=== PATIENT | male | born 1940 | race Caucasian/White ===

== ENCOUNTER 2024-03-10 00:30 | Inpatient (IN) | payer MEDICARE, SELFPAY ==
[2024-03-10 00:45] VITALS: PULSE 73; RESP 16; O2SAT 94
[2024-03-10 01:41] VITALS: BP 112/72; PULSE 73; RESP 18; TEMP 36.4; O2SAT 94
--- NOTE | 2024-03-10 06:33 | HP.PCM_ITS ---
[facility] - General General Date of Admission: 03/10/24 Date of Service: 03/12/24 Chief Complaint: Here for rehabilitation. HPI Narrative 02/20/2024 ROLAND LOREDO, is a 84 Male who presents to [facility] ED with weakness, dehydration, covid-19. 02/20/2024 Admit to [facility]. 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 Weak, unable to walk since positive for covid. Usually walks with cane and/or walker. Unable to stand, multiple falls. Chest X-ray negative, CT brain negative, CT CTLS spine negative. PT/OT for SNF. 1 Liter IV fluid bolus given in ED. 02/21/2024 Consult Neurology for recurrent stroke. Remdesivir for covid-19. 02/22/2024 Neurology recommended MRI brain, MRI CTL spine, PT/OT for weakness. Remdesivir x 3 days for covid-19. 02/23/2024 MRI brain medial occipital lobe infarct. MRI T spine T10-T11 severe spinal canal stenosis with indeterminate cord compression. Orthopedic spine consulted. Aspirin started for stroke. 02/24/2024 [facility] recommended thoracic surgical decompression 02/28/2024. 02/28/2024 [facility] perfored T9-T11 posterior spinal fusion, and instrumentation, T9-T11 laminectomy and decompression. 02/29/2024 WBAT, no bending, twisting or lifting. LILA drain. Postoperative antibiotics Ancef 2gm x 2 q8. Has not walked yet. 03/03/2024 Drain removed. 03/08/2024 Back pain tolerable, right lower extremity weakness.. Passed voiding trial, on Tamsulosin. covid-19 treated with 3 days of remdesivir. Creatinine improved to 1.9. 03/10/2024 Admit to TCU with debility, here for rehabilitation, strengthening, prior to discharge home with . [facility] Medical History (Updated 03/10/24 @ 06:[address] Aamir Robison MD) History of transcatheter aortic valve replacement (TAVR) Pulmonary fibrosis Chronic kidney disease, stage 3a GERD (gastroesophageal reflux disease) Hyperlipidemia Essential (primary) hypertension Diabetes mellitus Coronary artery disease Severe mitral stenosis by prior echocardiogram Aortic stenosis (HFpEF) heart failure with preserved ejection fraction Thoracic spinal stenosis Stroke Acute kidney injury Dehydration COVID-19 Weakness Debility Allergy/AdvReac Type Severity Reaction Status Date / Time sildenafil AdvReac Mild intolerance Verified 03/10/24 04:15 sulfamethoxazole (From AdvReac Mild intolerance Verified 03/10/24 04:15 Bactrim) trimethoprim (From Bactrim) AdvReac Mild intolerance Verified 03/10/24 04:15 Family History (Updated 03/10/24 @ 06:[address] Aamir Robison MD) Father CVA (cerebral vascular accident) Surgical History (Updated 03/10/24 @ 06:[address] Aamir Robison MD) History of neck surgery History of heart artery stent History of cholecystectomy History of thoracic surgery History of lumbar surgery Social History (Updated 03/10/24 @ 06:[address] Aamir Robison MD) household members: spouse Smoking Status: Former smoker alcohol intake: never substance use type: does not use ROS Constitutional Constitutional: Denies chills, fever(s) or weight gain ENT HEENT: Denies headache(s), nasal congestion or nasal discharge Cardiovascular Cardiovascular: Denies chest pain or palpitations Respiratory/Chest Respiratory/Chest: Denies cough, excessive phlegm production or shortness of breath with exertion Gastrointestinal Gastrointestinal: Denies abdominal pain, nausea or vomiting Genitourinary Genitourinary: Denies dysuria Musculoskeletal Musculoskeletal: Reports other Details: Mid back pain. ; Denies joint pain or joint swelling Integumentary Integumentary: Denies rash or wounds Neurologic Neurologic: Denies focal weakness, numbness or tingling Psychiatric Psychiatric: Denies anxiety, auditory hallucinations, depression, homicidal ideation or suicidal ideation Vital Signs Vital Signs Vital Signs: 03/10/24 00:45 03/10/24 01:41 Temperature 97.5 F L Temperature Source Temporal Pulse Rate 73 73 Pulse Rhythm Regular Pulse Strength Normal (2+) Respiratory Rate 16 18 Respiratory Effort Normal Non-Labored Respiratory Depth Normal Respiratory Pattern Normal Blood Pressure 112/72 Blood Pressure Mean 85 Blood Pressure Source Monitor Blood Pressure Position Semi-Fowlers Pulse Ox 94 94 Oxygen Delivery Method Warm Humidified Isolette Room Air Physical Exam Const alert General Appearance: cooperative HEENT normocephalic Eyes PERRL and EOMs intact bilaterally Neck supple, no JVD and no carotid bruits Resp normal respiratory effort, normal air movement and clear to auscultation bilaterally Cardio regular rate and regular rhythm GI normal to inspection, nondistended, normoactive bowel sounds, non-tender and non-distended Extremity normal capillary refill General Extremity: Negative for edema Skin no rashes or lesions noted General Skin Exam: no breakdown Psych affect normal Appearance: appropriate Results Lab / Micro Data 03/10/24 07:00 03/10/24 07:00 Assessment & Plan Assessment/Plan (1) Debility: (2) Weakness: (3) COVID-19: (4) Dehydration: (5) Acute kidney injury: (6) Stroke: (7) Thoracic spinal stenosis: (8) (HFpEF) heart failure with preserved ejection fraction: (9) Aortic stenosis: (10) Severe mitral stenosis by prior echocardiogram: (11) Coronary artery disease: (12) Diabetes mellitus: (13) Essential (primary) hypertension: (14) Hyperlipidemia: (15) GERD (gastroesophageal reflux disease): (16) Chronic kidney disease, stage 3a: (17) Pulmonary fibrosis: PLAN: Plan 84 year old male with below past medical history hospitalized for weakness 2/2 covid-19, complicated by thoracic spinal stenosis requiring surgery, acute kidney injury, dehydration, urinary retention, recent stroke, admitted to TCU with debility, here for rehabilitation, strengthening, prior to discharge home with . * Debility - PT/OT. * Pain - Tylenol 1000mg q8, Oxycodone 5mg q4 prn pain (1-10). * Bowel - Miralax 17gm daily, senna/colace 2 tablets bid, Magnesium citrate 300ml po daily prn. * Adult immunization - Administer pneumonia vaccine, covid vaccine, flu vaccine as appropriate. * DVT prophylaxis - Lovenox 30mg sc daily. * Pulmonary fibrosis - Albuterol 2 puffs q4 prn. * Hypertension - Coreg 6.25mg bidac, Amlodipine 10mg daily. * Coronary artery disease - Coreg 6.25mg bidac, Aspirin 81mg daily. * Hyperlipidemia - Atorvastatin 80mg qhs, Fenofibrate 48mg daily. * Glaucoma - Brimonidine 1gtt ou bid, Latanoprost 1gtt ou qhs. * Chronic HFpEF - Coreg 6.25mg bidac, Furosemide 40mg daily. * Vitamin D deficiency - D3 50mcg daily. * Vitamin B12 deficiency - B12 1000mcg daily. * Iron deficiency anemia - Ferrous sulfate 325mg q48. * Diabetes Mellitus II - Glargine 18 units qhs, Lispor 6 units tidac. * Skin irritation - Calmoseptine topical bid. * GERD - Pantoprazole 20mg daily. * BPH/urinary retention - Tamsulosin 0.4mg daily, montemayor out.
[2024-03-10] MEDS: Acetaminophen 325 MG Tablet 650 MG PO (07:02)
[2024-03-10 07:13] LABS: Bedside Glucose 160 mg/dL (74-106)
[2024-03-10 07:30] VITALS: BP 122/58
[2024-03-10] MEDS: Carvedilol 6.25 MG Tablet PO ×2 (07:33→17:36)
[2024-03-10] MEDS: Insulin Lispro 100 UNIT/ML INSULN.PEN 6 UNIT SC ×3 (07:34→17:37)
[2024-03-10 07:58] LABS: Absolute Lymphocyte Count 1.29 X10^3/uL (0.83-4.51); Absolute Neutrophil Count 3.8 X10^3/uL (2.0-7.7); Basophil# 0.05 X10^3/uL; Basophil% 0.8 % (0-1); Eosinophil# 0.38 X10^3/uL; Eosinophils% 5.8 % (0-5); Lymphocyte # 1.29 X10^3/ul (0.83-4.51); Lymphocyte % 19.6 % (19-41); Mean Corpuscular Hgb 26.2 pg (27.0-32.0); Mean Platelet Vol. 9.8 fl (6.2-12.0); Monocyte% 13.7 % (0-10); NRBC Flagged by Analyzer 0 % (0-5); Neutrophil # 3.81 X10^3/uL (2.7-7.7); Neutrophil % 57.7 % (47-70); Platelet Count 355 K/mm3 (150-450); RBC Distribution Width CV 14.8 % (11.6-14.6); RBC Distribution Width SD 43.6 fl (35.1-43.9); Red Blood Count 3.05 M/mm3 (4.6-6.2); White Blood Count 6.6 K/mm3 (4.4-11.0)
[2024-03-10] MEDS: Cholecalciferol (VIT D3) 25 MCG TABLET (1,000 UNITS) 50 MCG PO (08:08)
[2024-03-10] MEDS: Cyanocobalamin 500 MCG Tablet 1000 MCG PO (08:09)
[2024-03-10] MEDS: Furosemide 40 MG Tablet PO (08:10)
[2024-03-10] MEDS: Pantoprazole Sodium 20 MG Tablet PO (08:10)
[2024-03-10] MEDS: Fenofibrate 48 MG Tablet PO (08:11)
[2024-03-10] MEDS: Polyethylene Glycol 3350 17 GM PACKET PO (08:12)
[2024-03-10] MEDS: Tamsulosin HCl 0.4 MG Capsule PO (08:12)
[2024-03-10] MEDS: Senna/Docusate Sodium 1 Tablet 2 TABLET PO ×2 (08:12→20:34)
[2024-03-10] MEDS: amLODIPine 10 MG Tablet PO (08:13)
[2024-03-10] MEDS: Aspirin 81 MG TAB.CHEW PO (08:13)
[2024-03-10 08:19] LABS: Anion Gap 8 (5-15); BUN 41 mg/dL (7-18); Calcium,Total 9.3 mg/dL (8.5-10.1); Chloride 99 mmol/L (98-107); Creatinine, Serum 1.95 mg/dL (0.70-1.30); EST Glomerular Filtration Rate 35 mL/min (>60); Est Glom Filt Rate - Afr Amer 42 mL/min (>60); Glucose 169 mg/dL (74-106); Sodium Level 135 mmol/L (136-145)
[2024-03-10 08:23] VITALS: BMI 31.4
[2024-03-10] MEDS: BRIMONIDINE 0.2% 5ML BOTTLE 1 DRP EACH EYE ×2 (10:13→20:32)
[2024-03-10] MEDS: Acetaminophen 500 MG Tablet 1000 MG PO ×2 (12:39→20:33)
[2024-03-10 13:25] LABS: Bedside Glucose 194 mg/dL (74-106)
[2024-03-10] MEDS: oxyCODONE 5 MG Tablet PO ×2 (13:49→20:34)
[2024-03-10 17:15] LABS: Bedside Glucose 244 mg/dL (74-106)
[2024-03-10 17:33] VITALS: BP 101/60; PULSE 67; RESP 20; TEMP 36.6; O2SAT 94
[2024-03-10 20:30] VITALS: TEMP 36.5
[2024-03-10] MEDS: Latanoprost 0.005% 1 Bottle 1 DRP EACH EYE (20:32)
[2024-03-10] MEDS: Atorvastatin Calcium 80 MG Tablet PO (20:35)
[2024-03-10] MEDS: Menthol/Lanolin/Calamine/Znox 113 GM Tube 1 APPLIC TOPICAL (20:44)
[2024-03-10] MEDS: Insulin Glargine-YFGN 100 UNIT/ML Pen 18 UNIT SC (20:45)
[2024-03-10 21:08] LABS: Bedside Glucose 199 mg/dL (74-106)
[2024-03-11 06:30] VITALS: BP 150/62; PULSE 77
[2024-03-11] MEDS: Carvedilol 6.25 MG Tablet PO ×2 (06:31→17:39)
[2024-03-11] MEDS: Acetaminophen 500 MG Tablet 1000 MG PO ×3 (06:31→21:19)
[2024-03-11] MEDS: Enoxaparin 30 MG/0.3 ML Syringe SC (06:31)
[2024-03-11] MEDS: Insulin Lispro 100 UNIT/ML INSULN.PEN 6 UNIT SC ×3 (06:33→17:39)
[2024-03-11 06:37] LABS: Bedside Glucose 183 mg/dL (74-106)
[2024-03-11] MEDS: oxyCODONE 5 MG Tablet PO ×3 (07:54→17:41)
[2024-03-11] MEDS: Ferrous Sulfate 325 MG Tablet PO (07:58)
[2024-03-11] MEDS: Aspirin 81 MG TAB.CHEW PO (07:58)
[2024-03-11 08:00] VITALS: BP 130/54; PULSE 74; RESP 16; TEMP 36.4; O2SAT 95
[2024-03-11] MEDS: BRIMONIDINE 0.2% 5ML BOTTLE 1 DRP EACH EYE ×2 (09:01→21:17)
[2024-03-11] MEDS: Tamsulosin HCl 0.4 MG Capsule PO (09:02)
[2024-03-11] MEDS: Furosemide 40 MG Tablet PO (09:02)
[2024-03-11] MEDS: amLODIPine 10 MG Tablet PO (09:03)
[2024-03-11] MEDS: Senna/Docusate Sodium 1 Tablet 2 TABLET PO ×2 (09:03→21:20)
[2024-03-11] MEDS: Pantoprazole Sodium 20 MG Tablet PO (09:03)
[2024-03-11] MEDS: Cyanocobalamin 500 MCG Tablet 1000 MCG PO (09:04)
[2024-03-11] MEDS: Fenofibrate 48 MG Tablet PO (09:04)
[2024-03-11] MEDS: Polyethylene Glycol 3350 17 GM PACKET PO (09:05)
[2024-03-11] MEDS: Cholecalciferol (VIT D3) 25 MCG TABLET (1,000 UNITS) 50 MCG PO (09:05)
[2024-03-11] MEDS: Menthol/Lanolin/Calamine/Znox 113 GM Tube 1 APPLIC TOPICAL ×2 (09:08→21:18)
[2024-03-11 10:35] VITALS: RESP 16; O2SAT 95
[2024-03-11 12:03] LABS: Bedside Glucose 240 mg/dL (74-106)
[2024-03-11] MEDS: Tuberculin,Purif.prot.deriv. 50 TU/ML Vial 0.1 ML ID (13:36)
[2024-03-11 16:32] LABS: Bedside Glucose 220 mg/dL (74-106)
[2024-03-11 17:37] VITALS: BP 116/46; PULSE 77
--- NOTE | 2024-03-11 20:38 | NURSING ---
Spoke w/ Dr. Robison via phone to update resident c/o muscle spasms. New order received and read back for Baclofen 10 mg po TID PRN muscle spasms.
[2024-03-11] MEDS: Baclofen 10 MG Tablet PO (21:18)
[2024-03-11] MEDS: Latanoprost 0.005% 1 Bottle 1 DRP EACH EYE (21:18)
[2024-03-11] MEDS: Atorvastatin Calcium 80 MG Tablet PO (21:20)
[2024-03-11] MEDS: Insulin Glargine-YFGN 100 UNIT/ML Pen 18 UNIT SC (21:21)
[2024-03-11 21:30] LABS: Bedside Glucose 167 mg/dL (74-106)
[2024-03-12 05:07] VITALS: RESP 16
[2024-03-12] MEDS: Enoxaparin 30 MG/0.3 ML Syringe SC (05:46)
[2024-03-12] MEDS: Insulin Lispro 100 UNIT/ML INSULN.PEN 6 UNIT SC ×3 (05:46→17:21)
[2024-03-12] MEDS: Carvedilol 6.25 MG Tablet PO ×2 (05:47→17:21)
[2024-03-12] MEDS: Acetaminophen 500 MG Tablet 1000 MG PO ×3 (05:47→21:55)
[2024-03-12 06:13] LABS: Bedside Glucose 163 mg/dL (74-106)
[2024-03-12 08:50] VITALS: BP 126/58; PULSE 75; RESP 16; TEMP 36.6; O2SAT 97
[2024-03-12] MEDS: Cyanocobalamin 500 MCG Tablet 1000 MCG PO (08:55)
[2024-03-12] MEDS: Furosemide 40 MG Tablet PO (08:55)
[2024-03-12] MEDS: oxyCODONE 5 MG Tablet PO ×4 (08:55→21:51)
[2024-03-12] MEDS: Tamsulosin HCl 0.4 MG Capsule PO (08:55)
[2024-03-12] MEDS: Fenofibrate 48 MG Tablet PO (08:55)
[2024-03-12] MEDS: amLODIPine 10 MG Tablet PO (08:55)
[2024-03-12] MEDS: Aspirin 81 MG TAB.CHEW PO (08:55)
[2024-03-12] MEDS: Cholecalciferol (VIT D3) 25 MCG TABLET (1,000 UNITS) 50 MCG PO (08:55)
[2024-03-12] MEDS: Pantoprazole Sodium 20 MG Tablet PO (08:56)
[2024-03-12] MEDS: Polyethylene Glycol 3350 17 GM PACKET PO (08:57)
[2024-03-12] MEDS: Menthol/Lanolin/Calamine/Znox 113 GM Tube 1 APPLIC TOPICAL ×2 (08:57→21:51)
[2024-03-12] MEDS: BRIMONIDINE 0.2% 5ML BOTTLE 1 DRP EACH EYE ×2 (08:57→21:51)
[2024-03-12] MEDS: Senna/Docusate Sodium 1 Tablet 2 TABLET PO ×2 (08:59→21:52)
--- NOTE | 2024-03-12 10:30 | PCM.PN.DRR ---
Documented by User: Wiley Hernandez 03/12/24 10:52 TCU RX Drug Regimen Review Subjective/Objective Subjective/Objective: Subjective: TCU admission note. 84 year old male with below past medical history hospitalized for weakness 2/2 covid-19, complicated by thoracic spinal stenosis requiring surgery, acute kidney injury, dehydration, urinary retention, recent stroke, admitted to TCU with debility, here for rehabilitation, strengthening, prior to discharge home with . Objective: Allergies sildenafil Adverse Reaction (Mild, Verified 03/10/24 04:15) intolerance sulfamethoxazole (From Bactrim) Adverse Reaction (Mild, Verified 03/10/24 04:15) intolerance trimethoprim (From Bactrim) Adverse Reaction (Mild, Verified 03/10/24 04:15) intolerance Current Medications Generic Name Dose Route Start Last Admin Trade Name Freq PRN Reason Stop Dose Admin Acetaminophen 1,000 mg 03/10/24 14:00 03/12/24 05:47 Acetaminophen 500 Mg Tablet PO 1,000 mg Q8 RICHY Administration Albuterol Sulfate 2 puff 03/10/24 04:36 Albuterol Ih (6.7 Gm) 1 Puff Inhaler INHALATION Q4H PRN PRN Wheezing Or SOB Amlodipine Besylate 10 mg 03/10/24 10:00 03/12/24 08:55 Amlodipine 10 Mg Tablet PO 10 mg DAILY RICHY Administration Protocol Aspirin 81 mg 03/10/24 08:00 03/12/24 08:55 Aspirin 81 Mg Tab.Chew PO 81 mg DAILYCM RICHY Administration Atorvastatin Calcium 80 mg 03/10/24 22:00 03/11/24 21:20 Atorvastatin Calcium 80 Mg Tablet PO 80 mg QHS RICHY Administration Baclofen 10 mg 03/11/24 20:37 03/11/24 21:18 Baclofen 10 Mg Tablet PO 10 mg TID PRN PRN Administration MUSCLE SPASM Brimonidine Tartrate 1 drp 03/10/24 10:00 03/12/24 08:57 Brimonidine 0.2% 5ml Bottle EACH EYE 1 drp BID RICHY Administration Calamine/Phenol 1 applic 03/10/24 10:00 03/12/24 08:57 Menthol/Lanolin/Calamine/Znox 113 Gm Tube TOPICAL 1 applic BID RICHY Administration Protocol Carvedilol 6.25 mg 03/10/24 07:00 03/12/24 05:47 Carvedilol 6.25 Mg Tablet PO 6.25 mg BIDAC [facility] Administration Protocol Cholecalciferol 50 mcg 03/10/24 10:00 03/12/24 08:55 Cholecalciferol (Vit D3) 25 Mcg Tablet (1,000 Units) PO 50 mcg DAILY RICHY Administration Cyanocobalamin 1,000 mcg 03/10/24 10:00 03/12/24 08:55 Cyanocobalamin 500 Mcg Tablet PO 1,000 mcg DAILY RICHY Administration Enoxaparin Sodium 30 mg 03/11/24 06:00 03/12/24 05:46 Enoxaparin 30 Mg/0.3 Ml Syringe SC 30 mg DAILY@0600 [facility] Administration Fenofibrate 48 mg 03/10/24 10:00 03/12/24 08:55 Fenofibrate 48 Mg Tablet PO 48 mg DAILY RICHY Administration Ferrous Sulfate 325 mg 03/11/24 08:00 03/11/24 07:58 Ferrous Sulfate 325 Mg Tablet PO 325 mg Q48H RICHY Administration Furosemide 40 mg 03/10/24 10:00 03/12/24 08:55 Furosemide 40 Mg Tablet PO 40 mg DAILY [facility] Administration Protocol Insulin Glargine 18 unit 03/10/24 22:00 03/11/24 21:21 Insulin Glargine-Yfgn 100 Unit/Ml Pen SC 18 unit QHS [facility] Administration Insulin Human Lispro 6 unit 03/10/24 06:45 03/12/24 05:46 Insulin Lispro 100 Unit/Ml Insuln.Pen SC 6 units TIDAC [facility] Administration Latanoprost 1 drp 03/10/24 22:00 03/11/24 21:18 Latanoprost 0.005% 1 Bottle EACH EYE 1 drp QHS [facility] Administration Magnesium Citrate 300 ml 03/10/24 07:06 Magnesium Citrate 300 Ml PO DAILY PRN Constipation Oxycodone HCl 5 mg 03/10/24 07:01 03/12/24 08:55 Oxycodone 5 Mg Tablet PO 5 mg Q4H PRN PRN Administration Pain Score 1-10 or Pre PT/OT Pantoprazole Sodium 20 mg 03/10/24 10:00 03/12/24 08:56 Pantoprazole Sodium 20 Mg Tablet PO 20 mg DAILY [facility] Administration Polyethylene Glycol 17 gm 03/10/24 10:00 03/12/24 08:57 Polyethylene Glycol 3350 17 Gm Packet PO 17 gm DAILY RICHY Administration Senna/Docusate Sodium 2 tablet 03/10/24 10:00 03/12/24 08:59 Senna/Docusate Sodium 1 Tablet PO 2 tablet BID RICHY Administration Tamsulosin HCl 0.4 mg 03/10/24 10:00 03/12/24 08:55 Tamsulosin Hcl 0.4 Mg Capsule PO 0.4 mg 1000 RICHY Administration Tuberculin PPD 0.1 ml 03/18/24 10:00 Tuberculin,Purif.Prot.Deriv. 50 Tu/Ml Vial ID 03/18/24 10:01 X1 ONE Problem List Pulmonary fibrosis (Acute) Chronic kidney disease, stage 3a (Chronic) GERD (gastroesophageal reflux disease) (Acute) Hyperlipidemia (Acute) Essential (primary) hypertension (Acute) Diabetes mellitus (Acute) Coronary artery disease (Acute) Severe mitral stenosis by prior echocardiogram (Acute) Aortic stenosis (Acute) (HFpEF) heart failure with preserved ejection fraction (Acute) Thoracic spinal stenosis (Acute) Stroke (Acute) Acute kidney injury (Acute) Dehydration (Acute) COVID-19 (Acute) Weakness (Acute) Debility (Acute) Vital Signs Temp Pulse Resp BP Pulse Ox O2 Del Method 97.8 F 75 16 126/58 H 97 Room Air 03/12/24 08:50 03/12/24 08:50 03/12/24 08:50 03/12/24 08:50 03/12/24 08:50 03/12/24 08:50 Oxygen Delivery Method Room Air Weight: 88.451 kg Body Mass Index (BMI) 31.4 Sodium 135 mmol/L (136-145) L 03/10/24 07:00 Potassium 4.0 mmol/L (3.5-5.1) 03/10/24 07:00 Chloride 99 mmol/L (98-107) 03/10/24 07:00 Carbon Dioxide 28.0 mmol/L (21.0-32.0) 03/10/24 07:00 Anion Gap 8 (5-15) 03/10/24 07:00 BUN 41 mg/dL (7-18) H 03/10/24 07:00 Creatinine 1.95 mg/dL (0.70-1.30) H 03/10/24 07:00 Est GFR (MDRD) Af Amer 42 mL/min (>60) L 10/05/24 07:00 Est GFR (MDRD) Non-Af 35 mL/min (>60) L 03/10/24 07:00 BUN/Creatinine Ratio 21.0 RATIO (10-20) H 03/10/24 07:00 Glucose 169 mg/dL (74-106) H 03/10/24 07:00 Assessment/Plan: 1. Pain: acetaminophen 1000 mg PO Q8, oxycodone 5 mg PO Q4H PRN pain. The patient has required 6 doses of PRN oxycodone so far this admission. Please continue to monitor for PRN medication administration, pain levels, LFTs (no recent LFTs documented), for constipation, drowsiness, dizziness, respiratory depression, and syncope/ataxia/falls. 2. Bowel: polyethylene glycol 17 grams PO daily, senna/docusate 2 tablets PO BID, magnesium citrate 300 mL PO daily PRN constipation. The patient has not required any PRN doses of magnesium citrate so far this admission and the patient's last bowel movement was on 03/12/24. Please continue to monitor for bowel movements, PRN medication administrations, constipation and diarrhea. 3. DVT prophylaxis: enoxaparin 30 mg SC daily. Please continue to monitor for s/s of a DVT such as pain/erythema/edema of an extremity, for bleeding/excessive bruising, renal function (serum creatinine = 1.95 mg/dL with creatinine clearance ~ 23 mL/min on 03/10/24), hemoglobin levels (Hgb = 8.0 g/dL on 03/10/24), and platelet counts (plt = 355 K/mm3 on 03/10/24). 4. Hypertension/chronic HFpEF/CAD/Hyperlipidemia: amlodipine 10 mg PO daily, aspirin 81 mg PO daily, atorvastatin 80 mg PO QHS, carvedilol 6.25 mg PO BID, fenofibrate 48 mg PO daily, furosemide 40 mg PO daily. Please continue to monitor for chest pain, for s/s of a heart failure exacerbation such as shortness of breath or lower extremity edema, blood pressures (recent range = 101-150/46-72 mmHg), heart rates (recent range = 67-77 beats/min), lower extremity edema, bleeding/excessive bruising, LFTs (no recent LFTs documented), myalgias, lipid levels (no recent lipid levels documented), fatigue, renal function (serum creatinine = 1.95 mg/dL with creatinine clearance ~ 23 mL/min on 03/10/24), sodium levels (Na = 135 mmol/L on 03/10/24), potassium levels (K = 4.0 mmol/L on 03/10/24). 5. Diabetes Mellitus II: glargine 18 units, insulin lispro 6 units TIDAC. Please continue to monitor blood sugars (BG = 160-244 mg/dL), hemoglobin A1C levels (no recent A1C documented), and for s/s of hypo/hyperglycemia. 6. Pulmonary fibrosis: albuterol 2 puffs inhalation Q4H PRN shortness of breath. The patient has not required any PRN doses of albuterol so far this admission. Please continue to monitor for shortness of breath and PRN medication administrations. 7. GERD: pantoprazole 20 mg PO daily. Please continue to monitor for s/s of GERD, for diarrhea that could indicate clostridium difficile infection, as well as for s/s of bone resorption issues such as fractures. 8. BPH/urinary retention: tamsulosin 0.4 mg PO daily. Please continue to monitor for urinary retention, urine stream, and for s/s of orthostasis. 9. Glaucoma: brimonidine 1 drop in each eye BID, latanoprost 0.005% 1 drop in each eye at bedtime. Please continue to monitor eye health. 10. Muscle spasms: baclofen 10 mg PO TID PRN muscle spasms. The patient has used 1 dose of baclofen so far this admission. Please continue to monitor for muscle spasms, for PRN medication administrations, for drowsiness and dizziness, and nausea/vomiting. 11. Iron deficiency anemia: ferrous sulfate 325 mg PO Q48H. Please continue to monitor hemoglobin levels (Hgb = 8.0 g/dL on 03/10/24), and iron levels (no recent iron levels documented). 12. Vitamin D deficiency: cholecalciferol 50 mcg PO daily. Please continue to monitor for s/s of vitamin D deficiency and vitamin D levels (no recent vitamin D levels documented). 13. Vitamin B12 deficiency: cyanocobalamin 1000 mcg PO daily. Please continue to monitor for s/s of vitamin B12 deficiency as well as vitamin B12 levels (no recent levels documented). 14. Skin irritation: calmoseptine 1 application topically BID. Please continue to monitor for skin irritation and skin integrity. Assessment/Plan for indications treated with psychotropic medications: NA Medical chart and medication regimen reviewed. The following medication irregularities or issues were identified: NA Date Date of Note:: 03/12/24 Documented by User: Dr. Aamir Robison MD 03/12/24 13:28 TCU RX Drug Regimen Review Provider Comments Provider responsibility Provider Comments to Recommendations by Pharmacy: Agree
[2024-03-12] MEDS: Baclofen 10 MG Tablet PO (10:35)
[2024-03-12 11:37] LABS: Bedside Glucose 218 mg/dL (74-106)
--- NOTE | 2024-03-12 12:37 | NURSING ---
Research Quality Assurance Specialist Note; Activity Asset: Portillo Chavez is independent in his choice of daily activities. He prefers in room and family activities over group. He welcomes visits with the utilization manager and therapy dog when available. He wares glasses however things are mostly blurry for him 2 feet away but will read his bible. Staff will remind him of weekly activities and take items he may need to his room. Staff will respect his right to refuse activities.
[2024-03-12 17:16] LABS: Bedside Glucose 237 mg/dL (74-106)
[2024-03-12 17:20] VITALS: BP 141/62; PULSE 67
[2024-03-12 21:46] LABS: Bedside Glucose 203 mg/dL (74-106)
[2024-03-12] MEDS: Atorvastatin Calcium 80 MG Tablet PO (21:52)
[2024-03-12] MEDS: Insulin Glargine-YFGN 100 UNIT/ML Pen 18 UNIT SC (21:52)
[2024-03-12] MEDS: Latanoprost 0.005% 1 Bottle 1 DRP EACH EYE (21:56)
[2024-03-13] MEDS: Acetaminophen 500 MG Tablet 1000 MG PO ×3 (06:14→22:02)
[2024-03-13] MEDS: Enoxaparin 30 MG/0.3 ML Syringe SC (06:15)
[2024-03-13] MEDS: Carvedilol 6.25 MG Tablet PO ×2 (06:15→16:53)
[2024-03-13 06:19] LABS: Bedside Glucose 169 mg/dL (74-106)
[2024-03-13 06:20] VITALS: BP 130/64; PULSE 89; RESP 16
[2024-03-13] MEDS: Senna/Docusate Sodium 1 Tablet 2 TABLET PO ×2 (07:50→22:02)
[2024-03-13] MEDS: Tamsulosin HCl 0.4 MG Capsule PO (07:50)
[2024-03-13] MEDS: Ferrous Sulfate 325 MG Tablet PO (07:50)
[2024-03-13] MEDS: Polyethylene Glycol 3350 17 GM PACKET PO (07:50)
[2024-03-13] MEDS: Fenofibrate 48 MG Tablet PO (07:50)
[2024-03-13] MEDS: Furosemide 40 MG Tablet PO (07:50)
[2024-03-13] MEDS: Aspirin 81 MG TAB.CHEW PO (07:50)
[2024-03-13] MEDS: amLODIPine 10 MG Tablet PO (07:51)
[2024-03-13] MEDS: Cyanocobalamin 500 MCG Tablet 1000 MCG PO (07:51)
[2024-03-13] MEDS: Pantoprazole Sodium 20 MG Tablet PO (07:51)
[2024-03-13] MEDS: Cholecalciferol (VIT D3) 25 MCG TABLET (1,000 UNITS) 50 MCG PO (07:51)
[2024-03-13] MEDS: Insulin Lispro 100 UNIT/ML INSULN.PEN 6 UNIT SC ×3 (07:51→16:53)
[2024-03-13] MEDS: BRIMONIDINE 0.2% 5ML BOTTLE 1 DRP EACH EYE ×2 (07:56→22:03)
[2024-03-13] MEDS: Menthol/Lanolin/Calamine/Znox 113 GM Tube 1 APPLIC TOPICAL ×2 (07:56→22:03)
[2024-03-13] MEDS: oxyCODONE 5 MG Tablet PO ×2 (07:59→22:03)
[2024-03-13 09:21] VITALS: BMI 31.6
[2024-03-13 11:32] LABS: Bedside Glucose 210 mg/dL (74-106)
[2024-03-13 14:20] VITALS: BP 126/55; PULSE 75; RESP 14; TEMP 36.4; O2SAT 96
--- NOTE | 2024-03-13 15:20 | CASEMGMT ---
Social Work SW met with patient to complete initial assessment. Introduced self and role. Verified/updated contacts. Patient confirmed code status as full code. SW requested provide copies of advanced directives. Educated to [facility] insurance with [employer] 03/19 and continued stay is not guaranteed with each review. Pt's goal is to return home with at OF. SW will continue to follow for DC planning. OSIEL WareW
[2024-03-13 16:44] LABS: Bedside Glucose 208 mg/dL (74-106)
[2024-03-13 21:28] LABS: Bedside Glucose 174 mg/dL (74-106)
[2024-03-13] MEDS: Latanoprost 0.005% 1 Bottle 1 DRP EACH EYE (22:02)
[2024-03-13] MEDS: Atorvastatin Calcium 80 MG Tablet PO (22:02)
[2024-03-13] MEDS: Insulin Glargine-YFGN 100 UNIT/ML Pen 18 UNIT SC (22:03)
[2024-03-14] MEDS: Acetaminophen 500 MG Tablet 1000 MG PO ×2 (05:52→13:30)
[2024-03-14] MEDS: Enoxaparin 30 MG/0.3 ML Syringe SC (05:53)
[2024-03-14] MEDS: Carvedilol 6.25 MG Tablet PO ×2 (05:55→15:59)
[2024-03-14 06:35] LABS: Bedside Glucose 147 mg/dL (74-106)
[2024-03-14 07:57] VITALS: BP 168/68; PULSE 74; RESP 16; TEMP 36.4; O2SAT 98
[2024-03-14] MEDS: Insulin Lispro 100 UNIT/ML INSULN.PEN 6 UNIT SC ×3 (07:59→17:40)
[2024-03-14] MEDS: Cyanocobalamin 500 MCG Tablet 1000 MCG PO (08:00)
[2024-03-14] MEDS: Pantoprazole Sodium 20 MG Tablet PO (08:00)
[2024-03-14] MEDS: Fenofibrate 48 MG Tablet PO (08:00)
[2024-03-14] MEDS: Senna/Docusate Sodium 1 Tablet 2 TABLET PO ×2 (08:00→20:46)
[2024-03-14] MEDS: Tamsulosin HCl 0.4 MG Capsule PO (08:01)
[2024-03-14] MEDS: amLODIPine 10 MG Tablet PO (08:01)
[2024-03-14] MEDS: Furosemide 40 MG Tablet PO (08:01)
[2024-03-14] MEDS: Menthol/Lanolin/Calamine/Znox 113 GM Tube 1 APPLIC TOPICAL ×2 (08:01→20:46)
[2024-03-14] MEDS: Polyethylene Glycol 3350 17 GM PACKET PO (08:01)
[2024-03-14] MEDS: Aspirin 81 MG TAB.CHEW PO (08:01)
[2024-03-14] MEDS: BRIMONIDINE 0.2% 5ML BOTTLE 1 DRP EACH EYE ×2 (08:01→20:45)
[2024-03-14] MEDS: Cholecalciferol (VIT D3) 25 MCG TABLET (1,000 UNITS) 50 MCG PO (08:02)
[2024-03-14] MEDS: oxyCODONE 5 MG Tablet PO ×2 (08:06→13:28)
--- NOTE | 2024-03-14 10:11 | CASEMGMT ---
Social Work IDT met with patient for care plan meeting. could not be available in person or by phone. Discussed patient's progress in PT/OT/ST/SN. Educated to [facility] insurance with [facility] 03/15 and continued stay is not guaranteed with each review. Pt's goal is to return home with and have her assume assistance with IADLs. Pt has spinal precautions. SW will continue to follow for DC planning. Obdulia Reddy, PEER COUNSELOR FOOD AND BEVERAGE OUTLETS MANAGER
[2024-03-14 11:27] LABS: Bedside Glucose 203 mg/dL (74-106)
[2024-03-14] MEDS: Baclofen 10 MG Tablet PO ×2 (11:55→20:44)
--- NOTE | 2024-03-14 12:36 | NURSING ---
dressing changed to back incision d/t seeping noted from proximal end of incision. raised area noted above sutures in that area as well. pt to see surgeon today.
--- NOTE | 2024-03-14 15:18 | NURSING ---
pt transport arrived at 1445 and that was the time pt was to be at his appt with surgeon. rescheduled for 03/16/24 @ 0830. attempted to reach , no answer. message left awaiting return call. set up this transport via insurance [employer].
[2024-03-14 15:57] VITALS: BP 127/53
[2024-03-14 17:20] LABS: Bedside Glucose 155 mg/dL (74-106)
[2024-03-14 19:32] VITALS: PULSE 77; RESP 16; O2SAT 97
[2024-03-14] MEDS: Latanoprost 0.005% 1 Bottle 1 DRP EACH EYE (20:48)
[2024-03-14] MEDS: Insulin Glargine-YFGN 100 UNIT/ML Pen 18 UNIT SC (20:49)
[2024-03-14] MEDS: Atorvastatin Calcium 80 MG Tablet PO (20:50)
[2024-03-14 21:10] LABS: Bedside Glucose 153 mg/dL (74-106)
[2024-03-15 05:24] VITALS: PULSE 60; RESP 18; O2SAT 96
[2024-03-15] MEDS: Enoxaparin 30 MG/0.3 ML Syringe SC (05:44)
[2024-03-15] MEDS: Acetaminophen 500 MG Tablet 1000 MG PO ×2 (05:44→14:10)
[2024-03-15 06:22] LABS: Bedside Glucose 140 mg/dL (74-106)
[2024-03-15 08:06] VITALS: BP 143/62; PULSE 77; RESP 16; TEMP 36.1; O2SAT 95
[2024-03-15] MEDS: Aspirin 81 MG TAB.CHEW PO (08:08)
[2024-03-15] MEDS: BRIMONIDINE 0.2% 5ML BOTTLE 1 DRP EACH EYE (08:08)
[2024-03-15] MEDS: Ferrous Sulfate 325 MG Tablet PO (08:09)
[2024-03-15] MEDS: Carvedilol 6.25 MG Tablet PO ×2 (08:09→17:15)
[2024-03-15] MEDS: Insulin Lispro 100 UNIT/ML INSULN.PEN 6 UNIT SC ×3 (08:09→17:15)
[2024-03-15] MEDS: Furosemide 40 MG Tablet PO (08:10)
[2024-03-15] MEDS: Senna/Docusate Sodium 1 Tablet 2 TABLET PO (08:10)
[2024-03-15] MEDS: amLODIPine 10 MG Tablet PO (08:10)
[2024-03-15] MEDS: Tamsulosin HCl 0.4 MG Capsule PO (08:10)
[2024-03-15] MEDS: Cholecalciferol (VIT D3) 25 MCG TABLET (1,000 UNITS) 50 MCG PO (08:10)
[2024-03-15] MEDS: Polyethylene Glycol 3350 17 GM PACKET PO (08:10)
[2024-03-15] MEDS: Fenofibrate 48 MG Tablet PO (08:10)
[2024-03-15] MEDS: Pantoprazole Sodium 20 MG Tablet PO (08:10)
[2024-03-15] MEDS: Cyanocobalamin 500 MCG Tablet 1000 MCG PO (08:11)
[2024-03-15] MEDS: Menthol/Lanolin/Calamine/Znox 113 GM Tube 1 APPLIC TOPICAL (08:11)
[2024-03-15] MEDS: oxyCODONE 5 MG Tablet PO ×2 (08:16→14:10)
[2024-03-15 11:51] LABS: Bedside Glucose 177 mg/dL (74-106)
--- NOTE | 2024-03-15 14:25 | MDS.RN ---
Pain interview for mds complete.
--- NOTE | 2024-03-15 14:25 | CASEMGMT ---
Social Work BIMS () and PHQ-2 () completed for MDS assessment. Obdulia Reddy MSW PER DIEM REGISTERED NURSE
[2024-03-15 16:54] LABS: Bedside Glucose 208 mg/dL (74-106)
[2024-03-15 21:36] LABS: Bedside Glucose 155 mg/dL (74-106)
--- NOTE | 2024-03-16 00:20 | NURSING ---
Moderate amount of sanguinous drainage to distal end of incision. Incision well approximated w/ sutures intact but appears moist at the distal end. No redness, warmth, or swelling noted. ABD applied to back and secured w/ two pieces of hypoallergenic tape. Will continue to monitor.
[2024-03-16] MEDS: Acetaminophen 500 MG Tablet 1000 MG PO ×4 (00:25→21:57)
[2024-03-16] MEDS: Senna/Docusate Sodium 1 Tablet 2 TABLET PO ×3 (00:25→21:57)
[2024-03-16] MEDS: Menthol/Lanolin/Calamine/Znox 113 GM Tube 1 APPLIC TOPICAL ×3 (00:26→21:58)
[2024-03-16] MEDS: Atorvastatin Calcium 80 MG Tablet PO ×2 (00:26→21:57)
[2024-03-16] MEDS: BRIMONIDINE 0.2% 5ML BOTTLE 1 DRP EACH EYE ×4 (00:26→21:57)
[2024-03-16] MEDS: Insulin Glargine-YFGN 100 UNIT/ML Pen 18 UNIT SC ×2 (00:28→21:58)
[2024-03-16] MEDS: Latanoprost 0.005% 1 Bottle 1 DRP EACH EYE ×2 (00:30→21:56)
[2024-03-16] MEDS: Enoxaparin 30 MG/0.3 ML Syringe SC (05:04)
[2024-03-16 06:18] LABS: Bedside Glucose 165 mg/dL (74-106)
[2024-03-16] MEDS: Aspirin 81 MG TAB.CHEW PO (06:57)
[2024-03-16] MEDS: Carvedilol 6.25 MG Tablet PO ×2 (06:57→17:08)
--- NOTE | 2024-03-16 07:01 | NURSING ---
Held am dose of Humalog 6 units as resident reports he will eat after his appointment. Transferred to w/c per PT and taken downstairs for family to transport to appt w/ surgeon.
[2024-03-16 07:03] VITALS: BP 149/65
--- NOTE | 2024-03-16 11:46 | NURSING ---
Patient returned from appt. with Dr. Carpenetr. New order for Doxycycline 100mg bid x 10 days. Family states was upset that he was not notified of drainage. He is to be notified of any increased drainage. Sutures were not removed today. Patient to have follow up visit on TuesdayMarch 23 at 10:15am. Family to transport.
[2024-03-16 12:36] LABS: Bedside Glucose 216 mg/dL (74-106)
[2024-03-16] MEDS: Insulin Lispro 100 UNIT/ML INSULN.PEN 6 UNIT SC ×2 (12:56→18:48)
[2024-03-16] MEDS: Cholecalciferol (VIT D3) 25 MCG TABLET (1,000 UNITS) 50 MCG PO (12:56)
[2024-03-16] MEDS: Fenofibrate 48 MG Tablet PO (12:57)
[2024-03-16] MEDS: Cyanocobalamin 500 MCG Tablet 1000 MCG PO (12:57)
[2024-03-16] MEDS: Tamsulosin HCl 0.4 MG Capsule PO (12:57)
[2024-03-16] MEDS: Pantoprazole Sodium 20 MG Tablet PO (12:58)
[2024-03-16] MEDS: amLODIPine 10 MG Tablet PO (12:58)
[2024-03-16] MEDS: Furosemide 40 MG Tablet PO (12:58)
[2024-03-16] MEDS: Polyethylene Glycol 3350 17 GM PACKET PO (12:59)
[2024-03-16] MEDS: Baclofen 10 MG Tablet PO (13:07)
[2024-03-16] MEDS: oxyCODONE 5 MG Tablet PO (14:26)
[2024-03-16 14:38] VITALS: BP 151/67; PULSE 78; RESP 16; TEMP 36.6; O2SAT 98
[2024-03-16 16:54] LABS: Bedside Glucose 110 mg/dL (74-106)
[2024-03-16 18:16] VITALS: RESP 16
[2024-03-16] MEDS: Doxycycline 100 MG CAPSULE PO (21:57)
[2024-03-16 22:09] LABS: Bedside Glucose 143 mg/dL (74-106)
[2024-03-17] MEDS: Enoxaparin 30 MG/0.3 ML Syringe SC (06:22)
[2024-03-17] MEDS: Acetaminophen 500 MG Tablet 1000 MG PO ×3 (06:23→22:03)
[2024-03-17] MEDS: Carvedilol 6.25 MG Tablet PO ×2 (06:23→16:52)
[2024-03-17 06:31] LABS: Bedside Glucose 152 mg/dL (74-106)
[2024-03-17 06:49] LABS: Absolute Lymphocyte Count 1.41 X10^3/uL (0.83-4.51); Absolute Neutrophil Count 3.5 X10^3/uL (2.0-7.7); Basophil# 0.08 X10^3/uL; Basophil% 1.4 % (0-1); Eosinophil# 0.27 X10^3/uL; Eosinophils% 4.6 % (0-5); Hematocrit 29.2 % (40-54); Lymphocyte # 1.41 X10^3/ul (0.83-4.51); Lymphocyte % 23.9 % (19-41); Mean Corp Hgb Conc 30.8 g/dL (32-36); Mean Corpuscular Hgb 26.5 pg (27.0-32.0); Mean Corpuscular Volume 85.9 fL (80-94); Monocyte# 0.59 X10^3/uL; NRBC Flagged by Analyzer 0 % (0-5); Neutrophil # 3.51 X10^3/uL (2.7-7.7); Neutrophil % 59.4 % (47-70); Platelet Count 358 K/mm3 (150-450); RBC Distribution Width CV 15.9 % (11.6-14.6); RBC Distribution Width SD 48.9 fl (35.1-43.9); White Blood Count 5.9 K/mm3 (4.4-11.0)
[2024-03-17 07:16] LABS: Anion Gap 5 (5-15); BUN 22 mg/dL (7-18); BUN/Creat Ratio 13.7 RATIO (10-20); Calcium,Total 9.3 mg/dL (8.5-10.1); Chloride 107 mmol/L (98-107); Creatinine, Serum 1.61 mg/dL (0.70-1.30); EST Glomerular Filtration Rate 44 mL/min (>60); Est Glom Filt Rate - Afr Amer 53 mL/min (>60); Estimated Creatinine Clearance 34.42 ml/min; Glucose 156 mg/dL (74-106); Potassium 3.9 mmol/L (3.5-5.1); Sodium Level 138 mmol/L (136-145)
[2024-03-17] MEDS: Insulin Lispro 100 UNIT/ML INSULN.PEN 6 UNIT SC ×3 (07:58→18:16)
[2024-03-17] MEDS: Ferrous Sulfate 325 MG Tablet PO (07:59)
[2024-03-17] MEDS: Aspirin 81 MG TAB.CHEW PO (07:59)
[2024-03-17] MEDS: Doxycycline 100 MG CAPSULE PO ×2 (09:47→22:03)
[2024-03-17] MEDS: Furosemide 40 MG Tablet PO (09:47)
[2024-03-17] MEDS: Tamsulosin HCl 0.4 MG Capsule PO (09:47)
[2024-03-17] MEDS: amLODIPine 10 MG Tablet PO (09:48)
[2024-03-17] MEDS: Pantoprazole Sodium 20 MG Tablet PO (09:48)
[2024-03-17] MEDS: Cyanocobalamin 500 MCG Tablet 1000 MCG PO (09:49)
[2024-03-17] MEDS: Cholecalciferol (VIT D3) 25 MCG TABLET (1,000 UNITS) 50 MCG PO (09:50)
[2024-03-17] MEDS: Fenofibrate 48 MG Tablet PO (09:50)
[2024-03-17] MEDS: Menthol/Lanolin/Calamine/Znox 113 GM Tube 1 APPLIC TOPICAL (09:51)
[2024-03-17 11:19] LABS: Bedside Glucose 226 mg/dL (74-106)
[2024-03-17 13:07] VITALS: BP 155/60; PULSE 72; RESP 16; TEMP 36; O2SAT 97
[2024-03-17] MEDS: oxyCODONE 5 MG Tablet PO (13:22)
[2024-03-17 16:27] LABS: Bedside Glucose 148 mg/dL (74-106)
[2024-03-17 17:20] VITALS: PULSE 76; RESP 16; O2SAT 98
[2024-03-17] MEDS: BRIMONIDINE 0.2% 5ML BOTTLE 1 DRP EACH EYE (21:59)
[2024-03-17] MEDS: Baclofen 10 MG Tablet PO (22:01)
[2024-03-17] MEDS: Latanoprost 0.005% 1 Bottle 1 DRP EACH EYE (22:02)
[2024-03-17] MEDS: Insulin Glargine-YFGN 100 UNIT/ML Pen 18 UNIT SC (22:03)
[2024-03-17] MEDS: Atorvastatin Calcium 80 MG Tablet PO (22:03)
[2024-03-17 22:31] LABS: Bedside Glucose 167 mg/dL (74-106)
[2024-03-17 23:45] LABS: Bedside Glucose 168 mg/dL (74-106)
[2024-03-18] MEDS: Enoxaparin 30 MG/0.3 ML Syringe SC (06:04)
[2024-03-18] MEDS: Carvedilol 6.25 MG Tablet PO ×2 (06:05→16:59)
[2024-03-18] MEDS: Acetaminophen 500 MG Tablet 1000 MG PO ×3 (06:05→21:45)
[2024-03-18 06:08] VITALS: BP 156/62; PULSE 70; RESP 16
[2024-03-18 06:29] LABS: Bedside Glucose 126 mg/dL (74-106)
[2024-03-18] MEDS: Insulin Lispro 100 UNIT/ML INSULN.PEN 6 UNIT SC ×3 (08:16→18:09)
[2024-03-18] MEDS: Aspirin 81 MG TAB.CHEW PO (08:18)
[2024-03-18] MEDS: Fenofibrate 48 MG Tablet PO (08:18)
[2024-03-18] MEDS: amLODIPine 10 MG Tablet PO (08:19)
[2024-03-18] MEDS: Pantoprazole Sodium 20 MG Tablet PO (08:19)
[2024-03-18] MEDS: Cholecalciferol (VIT D3) 25 MCG TABLET (1,000 UNITS) 50 MCG PO (08:19)
[2024-03-18] MEDS: Furosemide 40 MG Tablet PO (08:20)
[2024-03-18] MEDS: Doxycycline 100 MG CAPSULE PO ×2 (08:20→21:45)
[2024-03-18] MEDS: Tamsulosin HCl 0.4 MG Capsule PO (08:20)
[2024-03-18] MEDS: Cyanocobalamin 500 MCG Tablet 1000 MCG PO (08:20)
[2024-03-18] MEDS: BRIMONIDINE 0.2% 5ML BOTTLE 1 DRP EACH EYE ×2 (08:22→21:47)
[2024-03-18] MEDS: Menthol/Lanolin/Calamine/Znox 113 GM Tube 1 APPLIC TOPICAL ×2 (08:24→21:45)
[2024-03-18 08:56] VITALS: BP 153/63; PULSE 75; RESP 16; TEMP 36.3; O2SAT 97
[2024-03-18 11:22] LABS: Bedside Glucose 92 mg/dL (74-106)
[2024-03-18] MEDS: Tuberculin,Purif.prot.deriv. 50 TU/ML Vial 0.1 ML ID (13:58)
--- NOTE | 2024-03-18 14:26 | NURSING ---
Second TB test administered in left arm.
[2024-03-18 17:20] LABS: Bedside Glucose 145 mg/dL (74-106)
[2024-03-18 19:35] VITALS: PULSE 78; RESP 16; O2SAT 98
[2024-03-18] MEDS: Latanoprost 0.005% 1 Bottle 1 DRP EACH EYE (21:44)
[2024-03-18] MEDS: Atorvastatin Calcium 80 MG Tablet PO (21:45)
[2024-03-18] MEDS: Baclofen 10 MG Tablet PO (21:45)
[2024-03-18] MEDS: Insulin Glargine-YFGN 100 UNIT/ML Pen 18 UNIT SC (21:46)
[2024-03-18 21:48] LABS: Bedside Glucose 126 mg/dL (74-106)
--- NOTE | 2024-03-19 00:03 | NURSING ---
Patient states did not take insulin at home and would like to see if can be discontinued prior to discharge home, states took oral hypoglycemic medication at home but unable to recall name of medication. Written communication left for regarding request.
[2024-03-19 06:10] VITALS: BP 131/61; PULSE 74; RESP 16
[2024-03-19] MEDS: Enoxaparin 30 MG/0.3 ML Syringe SC (06:16)
[2024-03-19] MEDS: Acetaminophen 500 MG Tablet 1000 MG PO ×3 (06:16→21:09)
[2024-03-19] MEDS: Carvedilol 6.25 MG Tablet PO ×2 (06:16→17:47)
[2024-03-19 06:27] LABS: Bedside Glucose 109 mg/dL (74-106)
--- NOTE | 2024-03-19 08:44 | NURSING ---
Publications Editor Note, MDS for 03/17/2024 Complete
[2024-03-19 08:48] VITALS: BP 132/99; PULSE 79; RESP 16; TEMP 36.3; O2SAT 100
[2024-03-19] MEDS: Cyanocobalamin 500 MCG Tablet 1000 MCG PO (08:49)
[2024-03-19] MEDS: Fenofibrate 48 MG Tablet PO (08:50)
[2024-03-19] MEDS: Pantoprazole Sodium 20 MG Tablet PO (08:50)
[2024-03-19] MEDS: amLODIPine 10 MG Tablet PO (08:50)
[2024-03-19] MEDS: Furosemide 40 MG Tablet PO (08:50)
[2024-03-19] MEDS: Menthol/Lanolin/Calamine/Znox 113 GM Tube 1 APPLIC TOPICAL ×2 (08:51→21:10)
[2024-03-19] MEDS: Ferrous Sulfate 325 MG Tablet PO (08:51)
[2024-03-19] MEDS: BRIMONIDINE 0.2% 5ML BOTTLE 1 DRP EACH EYE ×2 (08:51→21:14)
[2024-03-19] MEDS: Aspirin 81 MG TAB.CHEW PO (08:51)
[2024-03-19] MEDS: Tamsulosin HCl 0.4 MG Capsule PO (08:51)
[2024-03-19] MEDS: Doxycycline 100 MG CAPSULE PO ×2 (08:51→21:09)
[2024-03-19] MEDS: Cholecalciferol (VIT D3) 25 MCG TABLET (1,000 UNITS) 50 MCG PO (08:51)
[2024-03-19] MEDS: Glimepiride 1 MG Tablet PO ×2 (08:55→17:47)
[2024-03-19] MEDS: Baclofen 10 MG Tablet PO (08:55)
[2024-03-19 10:00] VITALS: PULSE 75; RESP 16; O2SAT 97
[2024-03-19 11:08] LABS: Bedside Glucose 168 mg/dL (74-106)
[2024-03-19 17:36] LABS: Bedside Glucose 162 mg/dL (74-106)
[2024-03-19] MEDS: Senna/Docusate Sodium 1 Tablet 2 TABLET PO (17:47)
[2024-03-19 17:48] VITALS: BP 105/76
[2024-03-19] MEDS: Atorvastatin Calcium 80 MG Tablet PO (21:09)
[2024-03-19] MEDS: Latanoprost 0.005% 1 Bottle 1 DRP EACH EYE (21:09)
[2024-03-19 21:39] LABS: Bedside Glucose 117 mg/dL (74-106)
[2024-03-20] MEDS: Acetaminophen 500 MG Tablet 1000 MG PO ×3 (05:12→21:36)
[2024-03-20] MEDS: Enoxaparin 30 MG/0.3 ML Syringe SC (05:12)
[2024-03-20] MEDS: Carvedilol 6.25 MG Tablet PO ×2 (05:13→17:26)
[2024-03-20 05:15] VITALS: BP 157/62; PULSE 90
[2024-03-20 05:34] LABS: Bedside Glucose 93 mg/dL (74-106)
[2024-03-20 09:31] VITALS: BP 147/63; PULSE 71; RESP 16; TEMP 35.9; O2SAT 99
[2024-03-20] MEDS: Doxycycline 100 MG CAPSULE PO ×2 (09:33→21:35)
[2024-03-20] MEDS: Aspirin 81 MG TAB.CHEW PO (09:33)
[2024-03-20] MEDS: BRIMONIDINE 0.2% 5ML BOTTLE 1 DRP EACH EYE ×2 (09:33→21:35)
[2024-03-20] MEDS: Glimepiride 1 MG Tablet PO ×2 (09:33→17:26)
[2024-03-20] MEDS: Senna/Docusate Sodium 1 Tablet 2 TABLET PO ×2 (09:34→21:35)
[2024-03-20] MEDS: Pantoprazole Sodium 20 MG Tablet PO (09:34)
[2024-03-20] MEDS: Furosemide 40 MG Tablet PO (09:34)
[2024-03-20] MEDS: Tamsulosin HCl 0.4 MG Capsule PO (09:34)
[2024-03-20] MEDS: Cholecalciferol (VIT D3) 25 MCG TABLET (1,000 UNITS) 50 MCG PO (09:34)
[2024-03-20] MEDS: Fenofibrate 48 MG Tablet PO (09:34)
[2024-03-20] MEDS: Cyanocobalamin 500 MCG Tablet 1000 MCG PO (09:34)
[2024-03-20] MEDS: amLODIPine 10 MG Tablet PO (09:34)
[2024-03-20] MEDS: oxyCODONE 5 MG Tablet PO (09:37)
[2024-03-20] MEDS: Menthol/Lanolin/Calamine/Znox 113 GM Tube 1 APPLIC TOPICAL ×2 (09:39→21:36)
[2024-03-20 09:46] VITALS: RESP 16
[2024-03-20 11:40] LABS: Bedside Glucose 127 mg/dL (74-106)
[2024-03-20 14:58] VITALS: BMI 30.5
[2024-03-20 16:47] LABS: Bedside Glucose 161 mg/dL (74-106)
[2024-03-20] MEDS: Baclofen 10 MG Tablet PO (17:29)
[2024-03-20 17:30] VITALS: BP 146/63; PULSE 69
[2024-03-20] MEDS: Latanoprost 0.005% 1 Bottle 1 DRP EACH EYE (21:35)
[2024-03-20] MEDS: Atorvastatin Calcium 80 MG Tablet PO (21:36)
[2024-03-21 02:42] VITALS: PULSE 68; O2SAT 96
--- NOTE | 2024-03-21 06:05 | NURSING ---
patient blood sugar 66, 4oz OJ given, will monitor.
--- NOTE | 2024-03-21 06:18 | NURSING ---
patient blood sugar 75 at time.
[2024-03-21] MEDS: Carvedilol 6.25 MG Tablet PO ×2 (06:20→16:42)
[2024-03-21] MEDS: Acetaminophen 500 MG Tablet 1000 MG PO ×3 (06:20→21:40)
[2024-03-21] MEDS: Enoxaparin 30 MG/0.3 ML Syringe SC (06:21)
[2024-03-21 06:24] VITALS: BP 165/64; PULSE 67
--- NOTE | 2024-03-21 06:28 | NURSING ---
patient eating peanut butter at time.
[2024-03-21 06:34] LABS: Bedside Glucose 66 mg/dL (74-106)
[2024-03-21 06:48] LABS: Bedside Glucose 75 mg/dL (74-106)
[2024-03-21] MEDS: Cholecalciferol (VIT D3) 25 MCG TABLET (1,000 UNITS) 50 MCG PO (08:37)
[2024-03-21] MEDS: Senna/Docusate Sodium 1 Tablet 2 TABLET PO ×2 (08:37→21:40)
[2024-03-21] MEDS: Cyanocobalamin 500 MCG Tablet 1000 MCG PO (08:38)
[2024-03-21] MEDS: Fenofibrate 48 MG Tablet PO (08:38)
[2024-03-21] MEDS: Pantoprazole Sodium 20 MG Tablet PO (08:38)
[2024-03-21] MEDS: Aspirin 81 MG TAB.CHEW PO (08:38)
[2024-03-21] MEDS: Losartan Potassium 100 MG Tablet PO (08:38)
[2024-03-21] MEDS: Furosemide 40 MG Tablet PO (08:38)
[2024-03-21] MEDS: amLODIPine 10 MG Tablet PO (08:38)
[2024-03-21] MEDS: Tamsulosin HCl 0.4 MG Capsule PO (08:38)
[2024-03-21] MEDS: Doxycycline 100 MG CAPSULE PO ×2 (08:38→21:41)
[2024-03-21] MEDS: BRIMONIDINE 0.2% 5ML BOTTLE 1 DRP EACH EYE ×2 (08:39→21:39)
[2024-03-21] MEDS: Ferrous Sulfate 325 MG Tablet PO (08:39)
[2024-03-21] MEDS: Menthol/Lanolin/Calamine/Znox 113 GM Tube 1 APPLIC TOPICAL ×2 (08:45→21:39)
[2024-03-21 08:46] VITALS: BP 140/56; PULSE 74
[2024-03-21] MEDS: oxyCODONE 5 MG Tablet PO (14:27)
[2024-03-21 15:18] VITALS: BP 140/61; PULSE 72; RESP 18; TEMP 36.4; O2SAT 100
[2024-03-21 16:46] VITALS: BP 136/63; PULSE 69
[2024-03-21] MEDS: Baclofen 10 MG Tablet PO (21:38)
[2024-03-21] MEDS: Atorvastatin Calcium 80 MG Tablet PO (21:41)
[2024-03-21] MEDS: Latanoprost 0.005% 1 Bottle 1 DRP EACH EYE (21:42)
[2024-03-22] MEDS: Acetaminophen 500 MG Tablet 1000 MG PO ×3 (06:30→20:51)
[2024-03-22] MEDS: Enoxaparin 30 MG/0.3 ML Syringe SC (06:30)
[2024-03-22] MEDS: Carvedilol 6.25 MG Tablet PO ×2 (06:31→17:08)
[2024-03-22 06:33] LABS: Bedside Glucose 87 mg/dL (74-106)
[2024-03-22 06:42] VITALS: BP 134/60; PULSE 72; RESP 16; O2SAT 95
[2024-03-22 06:43] VITALS: PULSE 76; RESP 16; O2SAT 98
[2024-03-22] MEDS: Senna/Docusate Sodium 1 Tablet 2 TABLET PO ×2 (08:18→20:42)
[2024-03-22] MEDS: Pantoprazole Sodium 20 MG Tablet PO (08:18)
[2024-03-22] MEDS: Losartan Potassium 100 MG Tablet PO (08:18)
[2024-03-22] MEDS: Furosemide 40 MG Tablet PO (08:18)
[2024-03-22] MEDS: Tamsulosin HCl 0.4 MG Capsule PO (08:18)
[2024-03-22] MEDS: Doxycycline 100 MG CAPSULE PO ×2 (08:18→20:41)
[2024-03-22] MEDS: Fenofibrate 48 MG Tablet PO (08:18)
[2024-03-22] MEDS: Aspirin 81 MG TAB.CHEW PO (08:18)
[2024-03-22] MEDS: Cyanocobalamin 500 MCG Tablet 1000 MCG PO (08:18)
[2024-03-22] MEDS: Cholecalciferol (VIT D3) 25 MCG TABLET (1,000 UNITS) 50 MCG PO (08:18)
[2024-03-22] MEDS: BRIMONIDINE 0.2% 5ML BOTTLE 1 DRP EACH EYE ×2 (08:19→20:39)
[2024-03-22] MEDS: amLODIPine 10 MG Tablet PO (08:19)
--- NOTE | 2024-03-22 10:37 | MDS.RN ---
Information for the MDS was obtained from review of the clinical record, interview of resident, staff, and direct observation of resident?s care.
[2024-03-22 14:07] VITALS: BP 131/59; PULSE 77; RESP 18; TEMP 36.4; O2SAT 99
[2024-03-22] MEDS: Menthol/Lanolin/Calamine/Znox 113 GM Tube 1 APPLIC TOPICAL ×2 (14:09→20:40)
[2024-03-22 17:09] VITALS: BP 162/67; PULSE 90
[2024-03-22] MEDS: Atorvastatin Calcium 80 MG Tablet PO (20:41)
[2024-03-22] MEDS: Latanoprost 0.005% 1 Bottle 1 DRP EACH EYE (20:42)
[2024-03-22] MEDS: Baclofen 10 MG Tablet PO (20:49)
[2024-03-23] MEDS: BRIMONIDINE 0.2% 5ML BOTTLE 1 DRP EACH EYE ×2 (06:34→22:34)
[2024-03-23] MEDS: Menthol/Lanolin/Calamine/Znox 113 GM Tube 1 APPLIC TOPICAL ×2 (06:35→22:34)
[2024-03-23] MEDS: Doxycycline 100 MG CAPSULE PO ×2 (06:36→22:31)
[2024-03-23] MEDS: Furosemide 40 MG Tablet PO (06:36)
[2024-03-23] MEDS: Tamsulosin HCl 0.4 MG Capsule PO (06:36)
[2024-03-23] MEDS: Carvedilol 6.25 MG Tablet PO (06:36)
[2024-03-23] MEDS: Acetaminophen 500 MG Tablet 1000 MG PO ×3 (06:36→22:30)
[2024-03-23] MEDS: Pantoprazole Sodium 20 MG Tablet PO (06:36)
[2024-03-23] MEDS: Ferrous Sulfate 325 MG Tablet PO (06:37)
[2024-03-23] MEDS: Senna/Docusate Sodium 1 Tablet 2 TABLET PO ×2 (06:37→22:30)
[2024-03-23] MEDS: amLODIPine 10 MG Tablet PO (06:37)
[2024-03-23] MEDS: Losartan Potassium 100 MG Tablet PO (06:37)
[2024-03-23] MEDS: Cyanocobalamin 500 MCG Tablet 1000 MCG PO (06:37)
[2024-03-23] MEDS: Fenofibrate 48 MG Tablet PO (06:38)
[2024-03-23] MEDS: Aspirin 81 MG TAB.CHEW PO (06:38)
[2024-03-23] MEDS: Cholecalciferol (VIT D3) 25 MCG TABLET (1,000 UNITS) 50 MCG PO (06:38)
[2024-03-23] MEDS: Enoxaparin 30 MG/0.3 ML Syringe SC (06:38)
[2024-03-23] MEDS: oxyCODONE 5 MG Tablet PO (06:45)
--- NOTE | 2024-03-23 06:51 | NURSING ---
All AM medications administered at this time as ordered per pt. request due to patient planning for surgical f/u appointment with spouse transport at approx 0800
[2024-03-23 07:33] LABS: Bedside Glucose 124 mg/dL (74-106)
--- NOTE | 2024-03-23 08:15 | NURSING ---
Addendum entered by Winston Spaulding 03/23/24 12:46: Patient returned to the unit at this time. Original Note: Patient exited the unit at this time for dr cooper.
[2024-03-23] MEDS: Carvedilol 12.5 MG Tablet PO (15:08)
[2024-03-23 16:00] VITALS: BP 132/64; PULSE 79; RESP 18; TEMP 36.3; O2SAT 99
[2024-03-23] MEDS: Atorvastatin Calcium 80 MG Tablet PO (22:31)
[2024-03-23] MEDS: Baclofen 10 MG Tablet PO (22:33)
[2024-03-23] MEDS: Latanoprost 0.005% 1 Bottle 1 DRP EACH EYE (22:34)
[2024-03-24 06:25] VITALS: BP 146/55; PULSE 68
[2024-03-24] MEDS: Acetaminophen 500 MG Tablet 1000 MG PO ×3 (06:27→20:11)
[2024-03-24] MEDS: Carvedilol 12.5 MG Tablet PO ×2 (06:28→17:35)
[2024-03-24] MEDS: Enoxaparin 30 MG/0.3 ML Syringe SC (06:29)
[2024-03-24 06:37] LABS: Bedside Glucose 116 mg/dL (74-106)
[2024-03-24 06:58] LABS: Absolute Lymphocyte Count 1.16 X10^3/uL (0.83-4.51); Absolute Neutrophil Count 1.9 X10^3/uL (2.0-7.7); Basophil# 0.05 X10^3/uL; Basophil% 1.3 % (0-1); Eosinophils% 5.1 % (0-5); Hematocrit 26.9 % (40-54); Hemoglobin 8.6 g/dL (13.0-16.5); Lymphocyte # 1.16 X10^3/ul (0.83-4.51); Lymphocyte % 29.6 % (19-41); Mean Corpuscular Hgb 26.9 pg (27.0-32.0); Mean Corpuscular Volume 84.1 fL (80-94); Mean Platelet Vol. 9.4 fl (6.2-12.0); Monocyte# 0.58 X10^3/uL; Monocyte% 14.8 % (0-10); NRBC Flagged by Analyzer 0 % (0-5); Neutrophil # 1.91 X10^3/uL (2.7-7.7); Neutrophil % 48.7 % (47-70); Platelet Count 209 K/mm3 (150-450); RBC Distribution Width CV 16.1 % (11.6-14.6); RBC Distribution Width SD 49.4 fl (35.1-43.9); White Blood Count 3.9 K/mm3 (4.4-11.0)
[2024-03-24 07:47] LABS: Anion Gap 5 (5-15); BUN 24 mg/dL (7-18); Calcium,Total 9.3 mg/dL (8.5-10.1); Chloride 112 mmol/L (98-107); EST Glomerular Filtration Rate 47 mL/min (>60); Est Glom Filt Rate - Afr Amer 57 mL/min (>60); Estimated Creatinine Clearance 36.38 ml/min; Glucose 125 mg/dL (74-106); Potassium 3.7 mmol/L (3.5-5.1); Sodium Level 142 mmol/L (136-145)
[2024-03-24 09:17] VITALS: BP 125/49; PULSE 74; RESP 16; TEMP 36.4; O2SAT 99
[2024-03-24] MEDS: Doxycycline 100 MG CAPSULE PO ×2 (09:22→20:11)
[2024-03-24] MEDS: Tamsulosin HCl 0.4 MG Capsule PO (09:22)
[2024-03-24] MEDS: amLODIPine 10 MG Tablet PO (09:22)
[2024-03-24] MEDS: Furosemide 40 MG Tablet PO (09:22)
[2024-03-24] MEDS: BRIMONIDINE 0.2% 5ML BOTTLE 1 DRP EACH EYE ×2 (09:22→20:09)
[2024-03-24] MEDS: Aspirin 81 MG TAB.CHEW PO (09:22)
[2024-03-24] MEDS: Pantoprazole Sodium 20 MG Tablet PO (09:22)
[2024-03-24] MEDS: Losartan Potassium 100 MG Tablet PO (09:22)
[2024-03-24] MEDS: Cholecalciferol (VIT D3) 25 MCG TABLET (1,000 UNITS) 50 MCG PO (09:23)
[2024-03-24] MEDS: oxyCODONE 5 MG Tablet PO (09:23)
[2024-03-24] MEDS: Senna/Docusate Sodium 1 Tablet 2 TABLET PO ×2 (09:23→20:12)
[2024-03-24] MEDS: Cyanocobalamin 500 MCG Tablet 1000 MCG PO (09:23)
[2024-03-24] MEDS: Fenofibrate 48 MG Tablet PO (09:23)
[2024-03-24] MEDS: Menthol/Lanolin/Calamine/Znox 113 GM Tube 1 APPLIC TOPICAL ×2 (09:27→20:16)
[2024-03-24 12:10] VITALS: RESP 16
[2024-03-24] MEDS: Polyethylene Glycol 3350 17 GM PACKET PO (17:36)
[2024-03-24] MEDS: Baclofen 10 MG Tablet PO (17:38)
[2024-03-24 17:39] VITALS: BP 133/63; PULSE 68
--- NOTE | 2024-03-24 18:16 | NURSING ---
pt c/o rt upper/lateral abdominal pain
--- NOTE | 2024-03-24 18:17 | NURSING ---
pt c/o rt upper/lateral abdomen/side pain. rates 7/10 sharp intermittant pain. pt sitting up in chair. palpated abdomen, no pain with palpation. BS active x4, pt states he had x3 small BMs. encouraged pt to take miralax that he has been refusing. pt agreed to take. muscle relaxer given. pt sitting up in chair, assisted to BR, going to try to have BM. states pain started after having BM in afternoon.
--- NOTE | 2024-03-24 18:37 | NURSING ---
pt just finished in BR, passed gas and belched, states feels better. pt resting in bed, laughing about calling his belch a reverse fart. denies needs
[2024-03-24] MEDS: Latanoprost 0.005% 1 Bottle 1 DRP EACH EYE (20:09)
[2024-03-24] MEDS: Atorvastatin Calcium 80 MG Tablet PO (20:11)
--- NOTE | 2024-03-24 20:19 | NURSING ---
Prune juice given per resident request for c/o discomfort associated w/ constipation. Will continue to monitor.
[2024-03-25 06:26] VITALS: BP 150/59; PULSE 73
[2024-03-25] MEDS: Baclofen 10 MG Tablet PO (06:27)
[2024-03-25] MEDS: Acetaminophen 500 MG Tablet 1000 MG PO ×3 (06:27→20:27)
[2024-03-25] MEDS: Carvedilol 12.5 MG Tablet PO ×2 (06:27→17:07)
[2024-03-25] MEDS: Enoxaparin 30 MG/0.3 ML Syringe SC (06:27)
[2024-03-25 06:34] LABS: Bedside Glucose 139 mg/dL (74-106)
[2024-03-25 09:08] VITALS: BP 100/57; PULSE 72; RESP 16; TEMP 36.1; O2SAT 98
[2024-03-25] MEDS: Menthol/Lanolin/Calamine/Znox 113 GM Tube 1 APPLIC TOPICAL ×2 (09:11→20:28)
[2024-03-25] MEDS: BRIMONIDINE 0.2% 5ML BOTTLE 1 DRP EACH EYE ×2 (09:12→20:26)
[2024-03-25] MEDS: Aspirin 81 MG TAB.CHEW PO (09:15)
[2024-03-25] MEDS: Ferrous Sulfate 325 MG Tablet PO (09:15)
[2024-03-25] MEDS: Tamsulosin HCl 0.4 MG Capsule PO (09:16)
[2024-03-25] MEDS: Doxycycline 100 MG CAPSULE PO ×2 (09:16→20:28)
[2024-03-25] MEDS: Polyethylene Glycol 3350 17 GM PACKET PO (09:16)
[2024-03-25] MEDS: Furosemide 40 MG Tablet PO (09:16)
[2024-03-25] MEDS: Losartan Potassium 100 MG Tablet PO (09:16)
[2024-03-25] MEDS: Cyanocobalamin 500 MCG Tablet 1000 MCG PO (09:17)
[2024-03-25] MEDS: amLODIPine 10 MG Tablet PO (09:17)
[2024-03-25] MEDS: Fenofibrate 48 MG Tablet PO (09:17)
[2024-03-25] MEDS: Senna/Docusate Sodium 1 Tablet 2 TABLET PO ×2 (09:17→20:27)
[2024-03-25] MEDS: Pantoprazole Sodium 20 MG Tablet PO (09:17)
[2024-03-25] MEDS: Cholecalciferol (VIT D3) 25 MCG TABLET (1,000 UNITS) 50 MCG PO (09:18)
[2024-03-25] MEDS: oxyCODONE 5 MG Tablet PO ×2 (09:23→13:31)
[2024-03-25 17:08] VITALS: BP 145/68; PULSE 71
[2024-03-25] MEDS: Latanoprost 0.005% 1 Bottle 1 DRP EACH EYE (20:26)
[2024-03-25] MEDS: Atorvastatin Calcium 80 MG Tablet PO (20:28)
[2024-03-26 06:25] VITALS: BP 160/65; PULSE 76; O2SAT 98
[2024-03-26 06:26] LABS: Hemoglobin 8.8 g/dL (13.0-16.5)
[2024-03-26] MEDS: Carvedilol 12.5 MG Tablet PO ×2 (06:36→16:30)
[2024-03-26] MEDS: Acetaminophen 500 MG Tablet 1000 MG PO ×3 (06:36→23:15)
[2024-03-26] MEDS: Enoxaparin 30 MG/0.3 ML Syringe SC (06:36)
[2024-03-26 06:43] LABS: Bedside Glucose 130 mg/dL (74-106)
[2024-03-26] MEDS: Aspirin 81 MG TAB.CHEW PO (09:09)
[2024-03-26] MEDS: BRIMONIDINE 0.2% 5ML BOTTLE 1 DRP EACH EYE ×2 (10:46→23:15)
[2024-03-26] MEDS: Furosemide 40 MG Tablet PO (10:46)
[2024-03-26] MEDS: Doxycycline 100 MG CAPSULE PO ×2 (10:46→23:16)
[2024-03-26] MEDS: Tamsulosin HCl 0.4 MG Capsule PO (10:47)
[2024-03-26] MEDS: Losartan Potassium 100 MG Tablet PO (10:47)
[2024-03-26] MEDS: Polyethylene Glycol 3350 17 GM PACKET PO (10:49)
[2024-03-26] MEDS: amLODIPine 10 MG Tablet PO (10:49)
[2024-03-26] MEDS: Pantoprazole Sodium 20 MG Tablet PO (10:50)
[2024-03-26] MEDS: Senna/Docusate Sodium 1 Tablet 2 TABLET PO ×2 (10:50→23:16)
[2024-03-26] MEDS: Fenofibrate 48 MG Tablet PO (10:50)
[2024-03-26] MEDS: Cyanocobalamin 500 MCG Tablet 1000 MCG PO (10:50)
[2024-03-26] MEDS: Cholecalciferol (VIT D3) 25 MCG TABLET (1,000 UNITS) 50 MCG PO (10:51)
[2024-03-26] MEDS: Menthol/Lanolin/Calamine/Znox 113 GM Tube 1 APPLIC TOPICAL ×2 (10:54→23:18)
[2024-03-26] MEDS: Atorvastatin Calcium 80 MG Tablet PO (23:16)
[2024-03-26] MEDS: Latanoprost 0.005% 1 Bottle 1 DRP EACH EYE (23:16)
[2024-03-27] MEDS: Enoxaparin 30 MG/0.3 ML Syringe SC (05:41)
[2024-03-27] MEDS: Acetaminophen 500 MG Tablet 1000 MG PO ×3 (05:41→21:24)
[2024-03-27 06:34] LABS: Bedside Glucose 169 mg/dL (74-106)
--- NOTE | 2024-03-27 07:00 | NURSING ---
Pt states his right great toenail was coming loose so he pulled it off and it started bleeding. Cleaned with alcohol pad, gauze applied and wrapped with bandaid. Pt denies pain.
[2024-03-27] MEDS: Aspirin 81 MG TAB.CHEW PO (08:31)
[2024-03-27] MEDS: Furosemide 40 MG Tablet PO (08:31)
[2024-03-27] MEDS: Fenofibrate 48 MG Tablet PO (08:31)
[2024-03-27] MEDS: Losartan Potassium 100 MG Tablet PO (08:31)
[2024-03-27] MEDS: Ferrous Sulfate 325 MG Tablet PO (08:32)
[2024-03-27] MEDS: Cholecalciferol (VIT D3) 25 MCG TABLET (1,000 UNITS) 50 MCG PO (08:32)
[2024-03-27] MEDS: Cyanocobalamin 500 MCG Tablet 1000 MCG PO (08:32)
[2024-03-27] MEDS: amLODIPine 10 MG Tablet PO (08:32)
[2024-03-27] MEDS: Senna/Docusate Sodium 1 Tablet 2 TABLET PO (08:32)
[2024-03-27] MEDS: Tamsulosin HCl 0.4 MG Capsule PO (08:32)
[2024-03-27] MEDS: Carvedilol 12.5 MG Tablet PO ×2 (08:32→17:04)
[2024-03-27] MEDS: Polyethylene Glycol 3350 17 GM PACKET PO (08:32)
[2024-03-27] MEDS: Pantoprazole Sodium 20 MG Tablet PO (08:32)
[2024-03-27] MEDS: BRIMONIDINE 0.2% 5ML BOTTLE 1 DRP EACH EYE ×2 (08:33→21:22)
[2024-03-27] MEDS: Doxycycline 100 MG CAPSULE PO ×2 (08:33→21:24)
[2024-03-27] MEDS: Menthol/Lanolin/Calamine/Znox 113 GM Tube 1 APPLIC TOPICAL ×2 (08:33→21:26)
[2024-03-27 08:37] VITALS: BP 150/63; PULSE 70
[2024-03-27 09:50] VITALS: BMI 30.9
[2024-03-27 14:08] VITALS: BP 107/40; PULSE 71; RESP 16; TEMP 36.5
[2024-03-27 17:05] VITALS: BP 123/59; PULSE 83
[2024-03-27 19:41] VITALS: PULSE 76; RESP 16; O2SAT 97
[2024-03-27] MEDS: Atorvastatin Calcium 80 MG Tablet PO (21:24)
[2024-03-27] MEDS: Latanoprost 0.005% 1 Bottle 1 DRP EACH EYE (21:24)
[2024-03-28] MEDS: Enoxaparin 30 MG/0.3 ML Syringe SC (05:31)
[2024-03-28] MEDS: Acetaminophen 500 MG Tablet 1000 MG PO ×3 (05:31→21:29)
[2024-03-28 05:37] VITALS: PULSE 80; RESP 16
[2024-03-28 06:50] LABS: Bedside Glucose 155 mg/dL (74-106)
[2024-03-28] MEDS: BRIMONIDINE 0.2% 5ML BOTTLE 1 DRP EACH EYE ×2 (08:43→21:32)
[2024-03-28] MEDS: Polyethylene Glycol 3350 17 GM PACKET PO (08:43)
[2024-03-28] MEDS: Fenofibrate 48 MG Tablet PO (08:45)
[2024-03-28] MEDS: Cholecalciferol (VIT D3) 25 MCG TABLET (1,000 UNITS) 50 MCG PO (08:45)
[2024-03-28] MEDS: Senna/Docusate Sodium 1 Tablet 2 TABLET PO ×2 (08:45→21:30)
[2024-03-28] MEDS: amLODIPine 10 MG Tablet PO (08:46)
[2024-03-28] MEDS: Furosemide 40 MG Tablet PO (08:46)
[2024-03-28] MEDS: Pantoprazole Sodium 20 MG Tablet PO (08:46)
[2024-03-28] MEDS: Cyanocobalamin 500 MCG Tablet 1000 MCG PO (08:47)
[2024-03-28] MEDS: Losartan Potassium 100 MG Tablet PO (08:47)
[2024-03-28] MEDS: Aspirin 81 MG TAB.CHEW PO (08:47)
[2024-03-28] MEDS: Tamsulosin HCl 0.4 MG Capsule PO (08:48)
[2024-03-28] MEDS: Carvedilol 12.5 MG Tablet PO ×2 (08:48→16:39)
[2024-03-28] MEDS: Menthol/Lanolin/Calamine/Znox 113 GM Tube 1 APPLIC TOPICAL ×2 (08:51→21:31)
[2024-03-28] MEDS: Doxycycline 100 MG CAPSULE PO ×2 (08:54→21:30)
[2024-03-28 09:37] VITALS: BP 144/66; PULSE 88; RESP 16; TEMP 36.6; O2SAT 93
--- NOTE | 2024-03-28 10:11 | NURSING ---
Received call from Dr. Murcia's office pt is allowed to shower as long as incision is not draining.
[2024-03-28] MEDS: oxyCODONE 5 MG Tablet PO (10:28)
[2024-03-28] MEDS: Latanoprost 0.005% 1 Bottle 1 DRP EACH EYE (21:29)
[2024-03-28] MEDS: Atorvastatin Calcium 80 MG Tablet PO (21:30)
[2024-03-29 06:32] LABS: Bedside Glucose 157 mg/dL (74-106)
[2024-03-29] MEDS: Enoxaparin 30 MG/0.3 ML Syringe SC (06:32)
[2024-03-29] MEDS: Acetaminophen 500 MG Tablet 1000 MG PO ×3 (06:32→21:50)
[2024-03-29] MEDS: Aspirin 81 MG TAB.CHEW PO (09:20)
[2024-03-29] MEDS: Carvedilol 12.5 MG Tablet PO ×2 (09:21→16:54)
[2024-03-29] MEDS: BRIMONIDINE 0.2% 5ML BOTTLE 1 DRP EACH EYE ×2 (09:21→21:50)
[2024-03-29] MEDS: Ferrous Sulfate 325 MG Tablet PO (09:21)
[2024-03-29] MEDS: Doxycycline 100 MG CAPSULE PO ×2 (09:22→21:51)
[2024-03-29] MEDS: Losartan Potassium 100 MG Tablet PO (09:22)
[2024-03-29] MEDS: Tamsulosin HCl 0.4 MG Capsule PO (09:22)
[2024-03-29] MEDS: Fenofibrate 48 MG Tablet PO (09:22)
[2024-03-29] MEDS: Menthol/Lanolin/Calamine/Znox 113 GM Tube 1 APPLIC TOPICAL ×2 (09:22→21:50)
[2024-03-29] MEDS: Furosemide 40 MG Tablet PO (09:23)
[2024-03-29] MEDS: Senna/Docusate Sodium 1 Tablet 2 TABLET PO ×2 (09:23→21:51)
[2024-03-29] MEDS: Pantoprazole Sodium 20 MG Tablet PO (09:24)
[2024-03-29] MEDS: Polyethylene Glycol 3350 17 GM PACKET PO (09:24)
[2024-03-29] MEDS: amLODIPine 10 MG Tablet PO (09:24)
[2024-03-29] MEDS: Cyanocobalamin 500 MCG Tablet 1000 MCG PO (09:24)
[2024-03-29] MEDS: Cholecalciferol (VIT D3) 25 MCG TABLET (1,000 UNITS) 50 MCG PO (09:25)
[2024-03-29 09:31] VITALS: BP 145/63; PULSE 74; O2SAT 100
[2024-03-29 11:50] VITALS: PULSE 78; RESP 18; O2SAT 94
[2024-03-29 16:00] VITALS: RESP 16
[2024-03-29 16:59] VITALS: BP 156/67; PULSE 74
[2024-03-29] MEDS: Baclofen 10 MG Tablet PO (21:50)
[2024-03-29] MEDS: Atorvastatin Calcium 80 MG Tablet PO (21:51)
[2024-03-29] MEDS: Latanoprost 0.005% 1 Bottle 1 DRP EACH EYE (21:51)
[2024-03-30] MEDS: Enoxaparin 30 MG/0.3 ML Syringe SC (05:28)
[2024-03-30 06:42] LABS: Bedside Glucose 161 mg/dL (74-106)
[2024-03-30] MEDS: BRIMONIDINE 0.2% 5ML BOTTLE 1 DRP EACH EYE ×2 (07:47→21:21)
[2024-03-30] MEDS: Aspirin 81 MG TAB.CHEW PO (07:47)
[2024-03-30] MEDS: Carvedilol 12.5 MG Tablet PO ×2 (07:47→16:55)
[2024-03-30] MEDS: Menthol/Lanolin/Calamine/Znox 113 GM Tube 1 APPLIC TOPICAL ×2 (07:47→21:24)
[2024-03-30] MEDS: Furosemide 40 MG Tablet PO (07:48)
[2024-03-30] MEDS: Tamsulosin HCl 0.4 MG Capsule PO (07:48)
[2024-03-30] MEDS: Doxycycline 100 MG CAPSULE PO ×2 (07:48→21:22)
[2024-03-30] MEDS: Polyethylene Glycol 3350 17 GM PACKET PO (07:48)
[2024-03-30] MEDS: Losartan Potassium 100 MG Tablet PO (07:48)
[2024-03-30] MEDS: Pantoprazole Sodium 20 MG Tablet PO (07:49)
[2024-03-30] MEDS: Senna/Docusate Sodium 1 Tablet 2 TABLET PO ×2 (07:49→21:22)
[2024-03-30] MEDS: amLODIPine 10 MG Tablet PO (07:49)
[2024-03-30] MEDS: Fenofibrate 48 MG Tablet PO (07:49)
[2024-03-30] MEDS: Cholecalciferol (VIT D3) 25 MCG TABLET (1,000 UNITS) 50 MCG PO (07:49)
[2024-03-30] MEDS: Cyanocobalamin 500 MCG Tablet 1000 MCG PO (07:49)
[2024-03-30 08:00] VITALS: BP 171/73; PULSE 104; O2SAT 97
[2024-03-30 10:35] VITALS: PULSE 70; RESP 18; O2SAT 96
--- NOTE | 2024-03-30 10:42 | NURSING ---
pt c/o LT knee buckling & pain at times. requesting to see a surgeon if needed, explained to pt that will leave message for dr Robison. pt has not had any xrays done since admitted, may also be related to history of back surgeries.
[2024-03-30] MEDS: oxyCODONE 5 MG Tablet PO (10:55)
--- NOTE | 2024-03-30 13:45 | RAD_ITS ---
INDICATION: Mario alot. EXAMINATION/TECHNIQUE: X-RAY - LEFT XR Knee 3 Views COMPARISON: None. FINDINGS: No acute fracture or malalignment. Mild, medial compartment predominant, tricompartmental joint space narrowing and osteophytosis. No joint effusion. The soft tissues are unremarkable. RAD/Knee 3 Views IMPRESSION: No acute abnormalities. Mild, medial compartment predominant, tricompartmental degenerative arthrosis of the knee. Electronically Signed: Ethan Maher MD at 16:23 EDT ,
[2024-03-30] MEDS: Acetaminophen 500 MG Tablet 1000 MG PO ×2 (14:24→21:22)
[2024-03-30 15:39] VITALS: BP 135/57; PULSE 77; RESP 18; TEMP 36.6; O2SAT 99
--- NOTE | 2024-03-30 16:58 | NURSING ---
XRAY TO LEFT KNEE D/T BUCKLING- SEE REPORT.
[2024-03-30] MEDS: Baclofen 10 MG Tablet PO (21:22)
[2024-03-30] MEDS: Atorvastatin Calcium 80 MG Tablet PO (21:23)
[2024-03-30] MEDS: Latanoprost 0.005% 1 Bottle 1 DRP EACH EYE (21:24)
[2024-03-31] MEDS: Acetaminophen 500 MG Tablet 1000 MG PO ×3 (05:32→20:51)
[2024-03-31] MEDS: Enoxaparin 30 MG/0.3 ML Syringe SC (05:32)
[2024-03-31 06:41] LABS: Absolute Lymphocyte Count 1.41 X10^3/uL (0.83-4.51); Absolute Neutrophil Count 2.1 X10^3/uL (2.0-7.7); Basophil# 0.05 X10^3/uL; Basophil% 1.2 % (0-1); Eosinophil# 0.23 X10^3/uL; Eosinophils% 5.4 % (0-5); Hematocrit 29.1 % (40-54); Hemoglobin 9.2 g/dL (13.0-16.5); Lymphocyte # 1.41 X10^3/ul (0.83-4.51); Lymphocyte % 33.1 % (19-41); Mean Corp Hgb Conc 31.6 g/dL (32-36); Mean Corpuscular Hgb 26.5 pg (27.0-32.0); Mean Corpuscular Volume 83.9 fL (80-94); Mean Platelet Vol. 9.9 fl (6.2-12.0); Monocyte# 0.44 X10^3/uL; Monocyte% 10.3 % (0-10); NRBC Flagged by Analyzer 0 % (0-5); Neutrophil # 2.11 X10^3/uL (2.7-7.7); Neutrophil % 49.5 % (47-70); Platelet Count 183 K/mm3 (150-450); RBC Distribution Width CV 15.9 % (11.6-14.6); RBC Distribution Width SD 48.2 fl (35.1-43.9); Red Blood Count 3.47 M/mm3 (4.6-6.2); White Blood Count 4.3 K/mm3 (4.4-11.0)
[2024-03-31 06:44] LABS: Bedside Glucose 167 mg/dL (74-106)
[2024-03-31 07:19] LABS: Anion Gap 5 (5-15); BUN 22 mg/dL (7-18); BUN/Creat Ratio 14.3 RATIO (10-20); Calcium,Total 9.3 mg/dL (8.5-10.1); Chloride 109 mmol/L (98-107); Creatinine, Serum 1.54 mg/dL (0.70-1.30); EST Glomerular Filtration Rate 46 mL/min (>60); Est Glom Filt Rate - Afr Amer 55 mL/min (>60); Estimated Creatinine Clearance 35.63 ml/min; Glucose 173 mg/dL (74-106); Potassium 3.6 mmol/L (3.5-5.1); Sodium Level 139 mmol/L (136-145)
[2024-03-31] MEDS: Cyanocobalamin 500 MCG Tablet 1000 MCG PO (08:40)
[2024-03-31] MEDS: Ferrous Sulfate 325 MG Tablet PO (08:40)
[2024-03-31] MEDS: Cholecalciferol (VIT D3) 25 MCG TABLET (1,000 UNITS) 50 MCG PO (08:40)
[2024-03-31] MEDS: Losartan Potassium 100 MG Tablet PO (08:41)
[2024-03-31] MEDS: Senna/Docusate Sodium 1 Tablet 2 TABLET PO ×2 (08:41→20:51)
[2024-03-31] MEDS: Carvedilol 12.5 MG Tablet PO ×2 (08:41→18:10)
[2024-03-31] MEDS: Doxycycline 100 MG CAPSULE PO ×2 (08:41→20:50)
[2024-03-31] MEDS: Pantoprazole Sodium 20 MG Tablet PO (08:41)
[2024-03-31] MEDS: Furosemide 40 MG Tablet PO (08:41)
[2024-03-31] MEDS: Polyethylene Glycol 3350 17 GM PACKET PO (08:41)
[2024-03-31] MEDS: Tamsulosin HCl 0.4 MG Capsule PO (08:41)
[2024-03-31] MEDS: Aspirin 81 MG TAB.CHEW PO (08:41)
[2024-03-31] MEDS: BRIMONIDINE 0.2% 5ML BOTTLE 1 DRP EACH EYE ×2 (08:41→20:52)
[2024-03-31] MEDS: amLODIPine 10 MG Tablet PO (08:41)
[2024-03-31] MEDS: Menthol/Lanolin/Calamine/Znox 113 GM Tube 1 APPLIC TOPICAL ×2 (08:42→20:52)
[2024-03-31] MEDS: Fenofibrate 48 MG Tablet PO (08:42)
[2024-03-31] MEDS: oxyCODONE 5 MG Tablet PO (12:36)
[2024-03-31 16:00] VITALS: BP 131/69; PULSE 89; RESP 16; TEMP 36.7; O2SAT 99
[2024-03-31 20:30] VITALS: PULSE 69; RESP 18; O2SAT 95
[2024-03-31] MEDS: Latanoprost 0.005% 1 Bottle 1 DRP EACH EYE (20:50)
[2024-03-31] MEDS: Atorvastatin Calcium 80 MG Tablet PO (20:51)
[2024-04-01] MEDS: Acetaminophen 500 MG Tablet 1000 MG PO ×3 (06:06→20:37)
[2024-04-01] MEDS: Enoxaparin 30 MG/0.3 ML Syringe SC (06:07)
[2024-04-01 06:40] LABS: Bedside Glucose 159 mg/dL (74-106)
[2024-04-01] MEDS: Pantoprazole Sodium 20 MG Tablet PO (09:11)
[2024-04-01] MEDS: Doxycycline 100 MG CAPSULE PO ×2 (09:11→20:39)
[2024-04-01] MEDS: Cyanocobalamin 500 MCG Tablet 1000 MCG PO (09:11)
[2024-04-01] MEDS: Tamsulosin HCl 0.4 MG Capsule PO (09:11)
[2024-04-01] MEDS: Furosemide 40 MG Tablet PO (09:11)
[2024-04-01] MEDS: Carvedilol 12.5 MG Tablet PO ×2 (09:11→16:54)
[2024-04-01] MEDS: Fenofibrate 48 MG Tablet PO (09:11)
[2024-04-01] MEDS: amLODIPine 10 MG Tablet PO (09:11)
[2024-04-01] MEDS: Polyethylene Glycol 3350 17 GM PACKET PO (09:11)
[2024-04-01] MEDS: Losartan Potassium 100 MG Tablet PO (09:11)
[2024-04-01] MEDS: Cholecalciferol (VIT D3) 25 MCG TABLET (1,000 UNITS) 50 MCG PO (09:11)
[2024-04-01] MEDS: BRIMONIDINE 0.2% 5ML BOTTLE 1 DRP EACH EYE ×2 (09:11→20:38)
[2024-04-01] MEDS: Aspirin 81 MG TAB.CHEW PO (09:11)
[2024-04-01] MEDS: Menthol/Lanolin/Calamine/Znox 113 GM Tube 1 APPLIC TOPICAL ×2 (09:12→20:39)
[2024-04-01 11:12] VITALS: BP 152/55
[2024-04-01 14:59] VITALS: BP 160/63; PULSE 71; RESP 16; TEMP 36.8; O2SAT 98
[2024-04-01 17:02] VITALS: BP 156/72; PULSE 82
[2024-04-01] MEDS: Senna/Docusate Sodium 1 Tablet 2 TABLET PO (20:37)
[2024-04-01] MEDS: Latanoprost 0.005% 1 Bottle 1 DRP EACH EYE (20:38)
[2024-04-01] MEDS: Atorvastatin Calcium 80 MG Tablet PO (20:39)
[2024-04-02] MEDS: Acetaminophen 500 MG Tablet 1000 MG PO ×3 (06:01→20:39)
[2024-04-02] MEDS: Enoxaparin 30 MG/0.3 ML Syringe SC (06:01)
[2024-04-02 06:09] LABS: Bedside Glucose 171 mg/dL (74-106)
[2024-04-02 08:21] VITALS: BP 151/62; PULSE 86; RESP 16; TEMP 36.5; O2SAT 94
[2024-04-02] MEDS: oxyCODONE 5 MG Tablet PO (08:30)
[2024-04-02] MEDS: Polyethylene Glycol 3350 17 GM PACKET PO (08:31)
[2024-04-02] MEDS: Pantoprazole Sodium 20 MG Tablet PO (08:31)
[2024-04-02] MEDS: Cyanocobalamin 500 MCG Tablet 1000 MCG PO (08:31)
[2024-04-02] MEDS: Furosemide 40 MG Tablet PO (08:32)
[2024-04-02] MEDS: Tamsulosin HCl 0.4 MG Capsule PO (08:32)
[2024-04-02] MEDS: Doxycycline 100 MG CAPSULE PO ×2 (08:33→20:39)
[2024-04-02] MEDS: Senna/Docusate Sodium 1 Tablet 2 TABLET PO ×2 (08:33→20:38)
[2024-04-02] MEDS: Losartan Potassium 100 MG Tablet PO (08:33)
[2024-04-02] MEDS: Cholecalciferol (VIT D3) 25 MCG TABLET (1,000 UNITS) 50 MCG PO (08:33)
[2024-04-02] MEDS: Ferrous Sulfate 325 MG Tablet PO (08:34)
[2024-04-02] MEDS: amLODIPine 10 MG Tablet PO (08:34)
[2024-04-02] MEDS: Aspirin 81 MG TAB.CHEW PO (08:34)
[2024-04-02] MEDS: Fenofibrate 48 MG Tablet PO (08:34)
[2024-04-02] MEDS: Carvedilol 12.5 MG Tablet PO ×2 (08:35→17:12)
[2024-04-02] MEDS: BRIMONIDINE 0.2% 5ML BOTTLE 1 DRP EACH EYE ×2 (08:35→20:36)
[2024-04-02] MEDS: Menthol/Lanolin/Calamine/Znox 113 GM Tube 1 APPLIC TOPICAL ×2 (08:36→20:36)
[2024-04-02] MEDS: Latanoprost 0.005% 1 Bottle 1 DRP EACH EYE (20:33)
[2024-04-02] MEDS: Atorvastatin Calcium 80 MG Tablet PO (20:39)
[2024-04-02 20:41] VITALS: PULSE 68; RESP 16; O2SAT 98
[2024-04-03] MEDS: Acetaminophen 500 MG Tablet 1000 MG PO ×3 (05:39→21:45)
[2024-04-03] MEDS: Enoxaparin 30 MG/0.3 ML Syringe SC (05:40)
[2024-04-03 06:25] LABS: Bedside Glucose 172 mg/dL (74-106)
[2024-04-03] MEDS: Losartan Potassium 100 MG Tablet PO (09:07)
[2024-04-03] MEDS: Aspirin 81 MG TAB.CHEW PO (09:07)
[2024-04-03] MEDS: Carvedilol 12.5 MG Tablet PO ×2 (09:07→17:06)
[2024-04-03] MEDS: BRIMONIDINE 0.2% 5ML BOTTLE 1 DRP EACH EYE ×2 (09:07→21:45)
[2024-04-03] MEDS: Furosemide 40 MG Tablet PO (09:08)
[2024-04-03] MEDS: Polyethylene Glycol 3350 17 GM PACKET PO (09:08)
[2024-04-03] MEDS: amLODIPine 10 MG Tablet PO (09:08)
[2024-04-03] MEDS: Tamsulosin HCl 0.4 MG Capsule PO (09:08)
[2024-04-03] MEDS: Fenofibrate 48 MG Tablet PO (09:09)
[2024-04-03] MEDS: Senna/Docusate Sodium 1 Tablet 2 TABLET PO ×2 (09:09→21:46)
[2024-04-03] MEDS: Pantoprazole Sodium 20 MG Tablet PO (09:09)
[2024-04-03] MEDS: Cyanocobalamin 500 MCG Tablet 1000 MCG PO (09:10)
[2024-04-03] MEDS: Cholecalciferol (VIT D3) 25 MCG TABLET (1,000 UNITS) 50 MCG PO (09:10)
[2024-04-03] MEDS: Menthol/Lanolin/Calamine/Znox 113 GM Tube 1 APPLIC TOPICAL ×2 (09:14→21:45)
[2024-04-03 11:13] VITALS: BMI 30.2
--- NOTE | 2024-04-03 14:16 | CASEMGMT ---
Addendum entered by Obdulia Reddy 04/04/24 14:27: SW phoned to follow up on outpatient therapy center preference. provided name and phone number to [facility] [phone]. SW phoned [facility] and they only provide PT. Received fax number [phone]. IDT agreeable to PT only. SW faxed referral and requested return call for PT eval appt and insurance coverage. Will continue to follow. Original Note: Social Work SW spoke with pt at bedside. Discussed readiness for DC as pt is now adlib in room. Pt states he does feel ready to DC home. SW informed insurance approved with [employer] 04/09. Offered to set DC date for 04/09. Pt agreeable and can transport. Therapy recommending FWW and OP PT/OT. Pt agreeable and prefers to remain in [place] for OP therapy. SW offered [facility] as known facility. Pt stated he has been to another facility but cannot recall the name and will ask , then notify this worker. SW to coordinate needs. MONET sent referral to [facility] [place] via [facility] for FWW. Plan: DC home with 04/09, OP PT/OT, FWW Obdulia Reddy, [employer]
[2024-04-03 15:09] VITALS: BP 151/66; PULSE 75; RESP 16; TEMP 36.7; O2SAT 98
[2024-04-03] MEDS: Carbamide Peroxide 15 ML Bottle OTIC (18:30)
[2024-04-03] MEDS: Latanoprost 0.005% 1 Bottle 1 DRP EACH EYE (21:45)
[2024-04-03] MEDS: Atorvastatin Calcium 80 MG Tablet PO (21:46)
[2024-04-04] MEDS: Acetaminophen 500 MG Tablet 1000 MG PO ×3 (06:19→21:15)
[2024-04-04] MEDS: Enoxaparin 30 MG/0.3 ML Syringe SC (06:19)
[2024-04-04 06:27] LABS: Bedside Glucose 172 mg/dL (74-106)
[2024-04-04 08:08] VITALS: BP 142/61; PULSE 80; RESP 18; TEMP 36.7; O2SAT 99
[2024-04-04] MEDS: Carbamide Peroxide 15 ML Bottle OTIC (08:15)
[2024-04-04] MEDS: Polyethylene Glycol 3350 17 GM PACKET PO (08:15)
[2024-04-04] MEDS: BRIMONIDINE 0.2% 5ML BOTTLE 1 DRP EACH EYE ×2 (08:16→21:12)
[2024-04-04] MEDS: Cholecalciferol (VIT D3) 25 MCG TABLET (1,000 UNITS) 50 MCG PO (08:16)
[2024-04-04] MEDS: Carvedilol 25 MG Tablet PO ×2 (08:17→16:01)
[2024-04-04] MEDS: Senna/Docusate Sodium 1 Tablet 2 TABLET PO ×2 (08:18→21:14)
[2024-04-04] MEDS: Pantoprazole Sodium 20 MG Tablet PO (08:18)
[2024-04-04] MEDS: Fenofibrate 48 MG Tablet PO (08:18)
[2024-04-04] MEDS: Tamsulosin HCl 0.4 MG Capsule PO (08:18)
[2024-04-04] MEDS: amLODIPine 10 MG Tablet PO (08:18)
[2024-04-04] MEDS: Furosemide 40 MG Tablet PO (08:18)
[2024-04-04] MEDS: Menthol/Lanolin/Calamine/Znox 113 GM Tube 1 APPLIC TOPICAL ×2 (08:19→21:12)
[2024-04-04] MEDS: Cyanocobalamin 500 MCG Tablet 1000 MCG PO (08:19)
[2024-04-04] MEDS: Losartan Potassium 100 MG Tablet PO (08:19)
[2024-04-04] MEDS: Aspirin 81 MG TAB.CHEW PO (08:19)
[2024-04-04] MEDS: Ferrous Sulfate 325 MG Tablet PO (08:19)
--- NOTE | 2024-04-04 18:50 | DS.PCM_ITS ---
Providers Date of Admission: 03/10/24 Primary Care Physician: SIS WEEKS DO Reason For Visit: T9-T11 POSTERIOR FUSION, T9-T10-T11 DECOMPRESSION Diagnosis Discharge Diagnosis (1) Debility: Status: Acute Code(s): R53.81 - Other malaise (2) Weakness: Status: Acute Code(s): R53.1 - Weakness (3) COVID-19: Status: Acute Code(s): U07.1 - COVID-19 (4) Dehydration: Status: Acute Code(s): E86.0 - Dehydration (5) Acute kidney injury: Status: Acute Code(s): N17.9 - Acute kidney failure, unspecified (6) Stroke: Status: Acute Code(s): I63.9 - Cerebral infarction, unspecified (7) Thoracic spinal stenosis: Status: Acute Code(s): M48.04 - Spinal stenosis, thoracic region (8) (HFpEF) heart failure with preserved ejection fraction: Status: Acute Code(s): I50.30 - Unspecified diastolic (congestive) heart failure (9) Aortic stenosis: Status: Acute Code(s): I35.0 - Nonrheumatic aortic (valve) stenosis (10) Severe mitral stenosis by prior echocardiogram: Status: Acute Code(s): I05.0 - Rheumatic mitral stenosis (11) Coronary artery disease: Status: Acute Code(s): I25.10 - Atherosclerotic heart disease of tor[place] martinez coronary artery without angina pectoris (12) Diabetes mellitus: Status: Acute Code(s): E11.9 - Type 2 diabetes mellitus without complications (13) Essential (primary) hypertension: Status: Acute Code(s): I10 - Essential (primary) hypertension (14) Hyperlipidemia: Status: Acute Code(s): E78.5 - Hyperlipidemia, unspecified (15) GERD (gastroesophageal reflux disease): Status: Acute Code(s): K21.9 - Gastro-esophageal reflux disease without esophagitis (16) Chronic kidney disease, stage 3a: Status: Chronic Code(s): N18.31 - Chronic kidney disease, stage 3a (17) Pulmonary fibrosis: Status: Acute Code(s): J84.10 - Pulmonary fibrosis, unspecified Plan 84 year old male with below past medical history hospitalized for weakness 2/2 covid-19, complicated by thoracic spinal stenosis requiring surgery, acute kidney injury, dehydration, urinary retention, recent stroke, admitted to TCU with debility, here for rehabilitation, strengthening, prior to discharge home with . * Debility - PT/OT. * Pain - Tylenol 1000mg q8, Oxycodone 5mg q4 prn pain (1-10). * Bowel - Miralax 17gm daily, senna/colace 2 tablets bid, Magnesium citrate 300ml po daily prn. * Adult immunization - Administer pneumonia vaccine, covid vaccine, flu vaccine as appropriate. * DVT prophylaxis - Lovenox 30mg sc daily. * Pulmonary fibrosis - Albuterol 2 puffs q4 prn. * Hypertension - Coreg 6.25mg bidac, Amlodipine 10mg daily. * Coronary artery disease - Coreg 6.25mg bidac, Aspirin 81mg daily. * Hyperlipidemia - Atorvastatin 80mg qhs, Fenofibrate 48mg daily. * Glaucoma - Brimonidine 1gtt ou bid, Latanoprost 1gtt ou qhs. * Chronic HFpEF - Coreg 6.25mg bidac, Furosemide 40mg daily. * Vitamin D deficiency - D3 50mcg daily. * Vitamin B12 deficiency - B12 1000mcg daily. * Iron deficiency anemia - Ferrous sulfate 325mg q48. * Diabetes Mellitus II - Glargine 18 units qhs, Lispor 6 units tidac. * Skin irritation - Calmoseptine topical bid. * GERD - Pantoprazole 20mg daily. * BPH/urinary retention - Tamsulosin 0.4mg daily, montemayor out. Medications at Discharge Home Medications acetaminophen 500 mg tablet 1,000 mg (2 x 500 mg) PO Q8 #0 tabs 24 amlodipine 10 mg tablet 10 mg PO DAILY #0 tabs 24 aspirin 81 mg chewable tablet 81 mg PO DAILYCM #0 tabs 24 atorvastatin 80 mg tablet 80 mg PO QHS #0 tabs 24 brimonidine 0.2 % eye drops 1 drp EACH EYE BID #0 mL 04/04/24 carvedilol 25 mg tablet 25 mg PO BIDCM #0 tabs 24 cholecalciferol (vitamin D3) 25 mcg (1,000 unit) tablet 50 mcg (2 x 25 mcg (1,000 unit)) PO DAILY #0 tabs 10/30/24 cyanocobalamin (vitamin B-12) 500 mcg tablet 1,000 mcg (2 x 500 mcg) PO DAILY #0 tabs 04/04/24 fenofibrate nanocrystallized 48 mg tablet 48 mg PO DAILY #0 tabs 04/04/24 furosemide 40 mg tablet 40 mg PO DAILY #0 tabs 04/04/24 latanoprost 0.005 % eye drops 1 drp EACH EYE QHS #0 mL 04/04/24 losartan 100 mg tablet 100 mg PO DAILY #0 tabs 04/04/24 oxycodone 5 mg tablet 5 mg PO Q4H PRN PRN Pain Score 1-10 Or Pre Pt/Ot 7 days #42 tabs 04/04/24 pantoprazole 20 mg tablet,delayed release 20 mg PO DAILY #0 tabs 04/04/24 sennosides 8.6 mg-docusate sodium 50 mg tablet (Stimulant Laxative Plus) 2 tab PO BID 30 days #120 tabs 04/04/24 tamsulosin 0.4 mg capsule 0.4 mg PO 1000 #0 caps 04/04/24 Hospital Course Operations - (See below.) Procedures None Summary of Care Provided Minutes Spent on Discharge: 35 Hospital Course: 84 year old male with below past medical history hospitalized for weakness 2/2 covid-19, complicated by thoracic spinal stenosis requiring surgery, acute kidney injury, dehydration, urinary retention, recent stroke, admitted to TCU with debility, here for rehabilitation, strengthening, prior to discharge home with . Discharge home with 04/09/2024, outpatient PT/OT, FWW. Front Wheeled Walker: Patient is unsafe to use a cane and requires a walker for ambulation in the home and the community. Physical Exam Const alert General Appearance: cooperative HEENT normocephalic Eyes PERRL and EOMs intact bilaterally Neck supple, no JVD and no carotid bruits Resp normal respiratory effort, normal air movement and clear to auscultation bilaterally Cardio regular rate and regular rhythm GI normal to inspection, nondistended, normoactive bowel sounds, non-tender and non-distended Extremity normal capillary refill General Extremity: Negative for edema Skin no rashes or lesions noted General Skin Exam: no breakdown Psych affect normal Appearance: appropriate Weight / BMI Weight Weight: 84.867 kg Body Mass Index (BMI) 30.2 ABG / Lab / Microbiology Data 03/31/24 06:10 03/31/24 06:10 Laboratory: Laboratory Results - last 24 hr 04/04/24 06:09: POC Glucose 172 H D/C Instructions Discharge Diet: No restrictions Discharge Activity: Return to Normal Activity, May Shower and Use Walker Weight Bearing Status: Weight bearing as tolerated Call your doctor if you observe: Fever of 101 or Higher, Inability to urinate, Inability to have a bowel movement, Shortness of breath, Dizziness, Fainting spells, Swelling in the ankles, Chest pain and Uncontrolled pain Additional Instructions: Discharge home with 04/09/2024, outpatient PT/OT, FWW. Front Wheeled Walker: Patient is unsafe to use a cane and requires a walker for ambulation in the home and the community. Please Follow Up With: Dr. Terrell Carpenter When: As scheduled. Meaningful Use Info Meaningful Use Meaningful Use Diagnoses (Choose all that apply): None applicable Ischemic Stroke Statin Dosing Therapy Reference: STATIN DOSE THERAPY REFERENCE: * Patients > 75 years receive moderate or high dose statin therapy. * Patients 75 years or YOUNGER should receive HIGH intensity statin dose unless contraindicated. You will be required to document reason for non-treatment if statin daily dose does not meet guidelines. HIGH DOSE STATIN THERAPY DAILY Atorvastatin > than or = to 40 mg Rosuvastatin > than or = to 20 mg Amlodipine + Atorvastatin > than or = to 2.5/40 mg Ezetimibe + Simvastatin 10/80 mg Simvastatin 80mg Discharge Plan Admission Admit Date/Time: 03/10/24 00:30 Primary Reason for Your Visit: Debility. Attending Provider: Aamir Robison Chi Primary Care Provider: SIS WEEKS Instructions Additional Instructions / Restrictions: Discharge home with 04/09/2024, outpatient PT/OT, FWW. Front Wheeled Walker: Patient is unsafe to use a cane and requires a walker for ambulation in the home and the community. Discharge Orders/Prescriptions Prescriptions: New furosemide 40 mg Tablet 40 mg PO DAILY Qty: 0 0RF latanoprost 0.005 % Drops 1 drp EACH EYE QHS Qty: 0 0RF atorvastatin 80 mg Tablet 80 mg PO QHS Qty: 0 0RF carvedilol 25 mg Tablet 25 mg PO BIDCM Qty: 0 0RF sennosides-docusate sodium [Stimulant Laxative Plus] 8.6-50 mg Tablet 2 tab PO BID 30 Days Qty: 120 0RF acetaminophen 500 mg Tablet 1,000 mg PO Q8 Qty: 0 0RF pantoprazole 20 mg Tablet,Delayed Release (Dr/Ec) 20 mg PO DAILY Qty: 0 0RF cyanocobalamin (vitamin B-12) 500 mcg Tablet 1,000 mcg PO DAILY Qty: 0 0RF tamsulosin 0.4 mg Capsule 0.4 mg PO 1000 Qty: 0 0RF amlodipine 10 mg Tablet 10 mg PO DAILY Qty: 0 0RF brimonidine 0.2 % Drops 1 drp EACH EYE BID Qty: 0 0RF aspirin 81 mg Tablet,Chewable 81 mg PO DAILYCM Qty: 0 0RF losartan 100 mg Tablet 100 mg PO DAILY Qty: 0 0RF oxycodone 5 mg Tablet 5 mg PO Q4H PRN PRN (Reason: Pain Score 1-10 Or Pre Pt/Ot) 7 Days Qty: 42 0RF fenofibrate nanocrystallized 48 mg Tablet 48 mg PO DAILY Qty: 0 0RF cholecalciferol (vitamin D3) 25 mcg (1,000 unit) Tablet 50 mcg PO DAILY Qty: 0 0RF Referrals / Follow Up: SIS WEEKS DO [Primary Care Provider] - ( to set up this appointment) Disposition Disposition (needs filled in before D/C Order can be placed): Home, Self Care
[2024-04-04 20:00] VITALS: PULSE 78; O2SAT 97
[2024-04-04] MEDS: Atorvastatin Calcium 80 MG Tablet PO (21:14)
[2024-04-04] MEDS: Latanoprost 0.005% 1 Bottle 1 DRP EACH EYE (21:16)
[2024-04-05] MEDS: Enoxaparin 30 MG/0.3 ML Syringe SC (05:19)
[2024-04-05] MEDS: Acetaminophen 500 MG Tablet 1000 MG PO ×3 (05:19→21:12)
[2024-04-05 06:24] LABS: Bedside Glucose 186 mg/dL (74-106)
[2024-04-05] MEDS: Aspirin 81 MG TAB.CHEW PO (09:35)
[2024-04-05] MEDS: Polyethylene Glycol 3350 17 GM PACKET PO (09:35)
[2024-04-05] MEDS: BRIMONIDINE 0.2% 5ML BOTTLE 1 DRP EACH EYE ×2 (09:35→21:08)
[2024-04-05] MEDS: Menthol/Lanolin/Calamine/Znox 113 GM Tube 1 APPLIC TOPICAL ×2 (09:36→21:10)
[2024-04-05] MEDS: Carvedilol 25 MG Tablet PO ×2 (09:36→17:16)
[2024-04-05] MEDS: Losartan Potassium 100 MG Tablet PO (09:37)
[2024-04-05] MEDS: Carbamide Peroxide 15 ML Bottle OTIC (09:37)
[2024-04-05] MEDS: amLODIPine 10 MG Tablet PO (09:38)
[2024-04-05] MEDS: Pantoprazole Sodium 20 MG Tablet PO (09:38)
[2024-04-05] MEDS: Tamsulosin HCl 0.4 MG Capsule PO (09:38)
[2024-04-05] MEDS: Furosemide 40 MG Tablet PO (09:38)
[2024-04-05] MEDS: Senna/Docusate Sodium 1 Tablet 2 TABLET PO ×2 (09:39→21:12)
[2024-04-05] MEDS: Cholecalciferol (VIT D3) 25 MCG TABLET (1,000 UNITS) 50 MCG PO (09:39)
[2024-04-05] MEDS: Cyanocobalamin 500 MCG Tablet 1000 MCG PO (09:39)
[2024-04-05] MEDS: Fenofibrate 48 MG Tablet PO (09:39)
[2024-04-05 09:55] VITALS: BP 123/58; PULSE 79; O2SAT 96
--- NOTE | 2024-04-05 11:24 | CASEMGMT ---
Social Work SW made referral to [facility]. Prescription faxed. Appointment set for 04/10 at 2:15. SW inquired about pt's copay for PT appointments. Practice will run patient's insurance and call pt's with copay information. Referral made to [facility] [place] for a FWW to be delivered to pt's room prior to discharge. SW met with pt and discussed dc plan. Pt is agreeable to plan as listed above. Pt's will provide transportation home. Discharge Date: 04/09/24 Discharge Disposition: Home with , outpatient PT AT [facility] PT, FWW CAREY Valencia
[2024-04-05 15:41] VITALS: RESP 16; TEMP 36.3
--- NOTE | 2024-04-05 16:17 | CASEMGMT ---
BIMS (05/20) and PHQ9 () interviews completed on this date for MDS assessment. CAREY Valencia
[2024-04-05 17:19] VITALS: BP 145/70; PULSE 79; O2SAT 99
[2024-04-05 20:00] VITALS: PULSE 72; RESP 16; O2SAT 97
[2024-04-05] MEDS: Latanoprost 0.005% 1 Bottle 1 DRP EACH EYE (21:10)
[2024-04-05] MEDS: Atorvastatin Calcium 80 MG Tablet PO (21:13)
[2024-04-06 04:15] VITALS: PULSE 76; O2SAT 97
[2024-04-06] MEDS: Enoxaparin 30 MG/0.3 ML Syringe SC (05:29)
[2024-04-06] MEDS: Acetaminophen 500 MG Tablet 1000 MG PO ×3 (05:30→21:02)
[2024-04-06 06:34] LABS: Bedside Glucose 188 mg/dL (74-106)
[2024-04-06] MEDS: Cholecalciferol (VIT D3) 25 MCG TABLET (1,000 UNITS) 50 MCG PO (09:20)
[2024-04-06] MEDS: Fenofibrate 48 MG Tablet PO (09:20)
[2024-04-06] MEDS: Cyanocobalamin 500 MCG Tablet 1000 MCG PO (09:20)
[2024-04-06] MEDS: Polyethylene Glycol 3350 17 GM PACKET PO (09:20)
[2024-04-06] MEDS: Pantoprazole Sodium 20 MG Tablet PO (09:21)
[2024-04-06] MEDS: Losartan Potassium 100 MG Tablet PO (09:21)
[2024-04-06] MEDS: Carvedilol 25 MG Tablet PO ×2 (09:21→17:24)
[2024-04-06] MEDS: Aspirin 81 MG TAB.CHEW PO (09:21)
[2024-04-06] MEDS: Furosemide 40 MG Tablet PO (09:21)
[2024-04-06] MEDS: Tamsulosin HCl 0.4 MG Capsule PO (09:21)
[2024-04-06] MEDS: Senna/Docusate Sodium 1 Tablet 2 TABLET PO ×2 (09:21→21:02)
[2024-04-06] MEDS: amLODIPine 10 MG Tablet PO (09:21)
[2024-04-06] MEDS: Menthol/Lanolin/Calamine/Znox 113 GM Tube 1 APPLIC TOPICAL (09:22)
[2024-04-06] MEDS: BRIMONIDINE 0.2% 5ML BOTTLE 1 DRP EACH EYE ×2 (09:22→21:00)
[2024-04-06] MEDS: Ferrous Sulfate 325 MG Tablet PO (09:22)
[2024-04-06] MEDS: Carbamide Peroxide 15 ML Bottle OTIC (09:22)
[2024-04-06] MEDS: Baclofen 10 MG Tablet PO (09:25)
[2024-04-06 14:26] VITALS: BP 140/56; RESP 16; TEMP 36.5; O2SAT 99
[2024-04-06] MEDS: Latanoprost 0.005% 1 Bottle 1 DRP EACH EYE (21:01)
[2024-04-06] MEDS: Atorvastatin Calcium 80 MG Tablet PO (21:02)
[2024-04-07] MEDS: Acetaminophen 500 MG Tablet 1000 MG PO ×3 (05:50→21:23)
[2024-04-07] MEDS: Enoxaparin 30 MG/0.3 ML Syringe SC (05:50)
[2024-04-07 06:06] LABS: Bedside Glucose 199 mg/dL (74-106)
[2024-04-07] MEDS: oxyCODONE 5 MG Tablet PO (08:38)
[2024-04-07] MEDS: Aspirin 81 MG TAB.CHEW PO (08:39)
[2024-04-07] MEDS: BRIMONIDINE 0.2% 5ML BOTTLE 1 DRP EACH EYE ×2 (08:40→21:25)
[2024-04-07] MEDS: Carvedilol 25 MG Tablet PO ×2 (08:40→17:35)
[2024-04-07] MEDS: Losartan Potassium 100 MG Tablet PO (08:40)
[2024-04-07] MEDS: Tamsulosin HCl 0.4 MG Capsule PO (08:41)
[2024-04-07] MEDS: Furosemide 40 MG Tablet PO (08:42)
[2024-04-07] MEDS: Polyethylene Glycol 3350 17 GM PACKET PO (08:43)
[2024-04-07] MEDS: amLODIPine 10 MG Tablet PO (08:43)
[2024-04-07] MEDS: Senna/Docusate Sodium 1 Tablet 2 TABLET PO ×2 (08:44→21:24)
[2024-04-07] MEDS: Fenofibrate 48 MG Tablet PO (08:44)
[2024-04-07] MEDS: Pantoprazole Sodium 20 MG Tablet PO (08:44)
[2024-04-07] MEDS: Cholecalciferol (VIT D3) 25 MCG TABLET (1,000 UNITS) 50 MCG PO (08:45)
[2024-04-07] MEDS: Cyanocobalamin 500 MCG Tablet 1000 MCG PO (08:45)
[2024-04-07 08:47] LABS: Absolute Neutrophil Count 3.4 X10^3/uL (2.0-7.7); Basophil# 0.08 X10^3/uL; Basophil% 1.3 % (0-1); Eosinophil# 0.38 X10^3/uL; Eosinophils% 6.3 % (0-5); Hematocrit 34.3 % (40-54); Hemoglobin 10.7 g/dL (13.0-16.5); Lymphocyte % 26.5 % (19-41); Mean Corp Hgb Conc 31.2 g/dL (32-36); Mean Corpuscular Hgb 26.4 pg (27.0-32.0); Mean Corpuscular Volume 84.7 fL (80-94); Mean Platelet Vol. 10.1 fl (6.2-12.0); Monocyte# 0.57 X10^3/uL; Monocyte% 9.4 % (0-10); NRBC Flagged by Analyzer 0.7 % (0-5); Neutrophil # 3.38 X10^3/uL (2.7-7.7); Platelet Count 229 K/mm3 (150-450); RBC Distribution Width CV 15.4 % (11.6-14.6); RBC Distribution Width SD 47.7 fl (35.1-43.9); Red Blood Count 4.05 M/mm3 (4.6-6.2)
[2024-04-07] MEDS: Carbamide Peroxide 15 ML Bottle OTIC (08:50)
[2024-04-07] MEDS: Menthol/Lanolin/Calamine/Znox 113 GM Tube 1 APPLIC TOPICAL (08:51)
[2024-04-07 08:53] VITALS: BP 144/66; PULSE 73; RESP 16; TEMP 36.6; O2SAT 98
[2024-04-07 09:03] LABS: Anion Gap 8 (5-15); BUN 16 mg/dL (7-18); BUN/Creat Ratio 10.3 RATIO (10-20); Calcium,Total 9.7 mg/dL (8.5-10.1); Chloride 108 mmol/L (98-107); Creatinine, Serum 1.55 mg/dL (0.70-1.30); EST Glomerular Filtration Rate 45 mL/min (>60); Est Glom Filt Rate - Afr Amer 55 mL/min (>60); Estimated Creatinine Clearance 34.95 ml/min; Glucose 224 mg/dL (74-106); Potassium 3.6 mmol/L (3.5-5.1); Sodium Level 139 mmol/L (136-145)
[2024-04-07 10:00] VITALS: PULSE 73; RESP 16
[2024-04-07 17:39] VITALS: BP 159/81; PULSE 87
[2024-04-07] MEDS: Latanoprost 0.005% 1 Bottle 1 DRP EACH EYE (21:23)
[2024-04-07] MEDS: Atorvastatin Calcium 80 MG Tablet PO (21:25)
[2024-04-08 06:20] LABS: Bedside Glucose 187 mg/dL (74-106)
[2024-04-08] MEDS: Acetaminophen 500 MG Tablet 1000 MG PO ×3 (06:40→21:13)
[2024-04-08] MEDS: Enoxaparin 30 MG/0.3 ML Syringe SC (06:40)
[2024-04-08] MEDS: Ferrous Sulfate 325 MG Tablet PO (08:06)
[2024-04-08] MEDS: Aspirin 81 MG TAB.CHEW PO (08:06)
[2024-04-08] MEDS: Carvedilol 25 MG Tablet PO ×2 (08:06→17:59)
[2024-04-08] MEDS: Losartan Potassium 100 MG Tablet PO (08:08)
[2024-04-08] MEDS: Tamsulosin HCl 0.4 MG Capsule PO (08:08)
[2024-04-08] MEDS: Furosemide 40 MG Tablet PO (08:08)
[2024-04-08] MEDS: Polyethylene Glycol 3350 17 GM PACKET PO (08:09)
[2024-04-08] MEDS: Pantoprazole Sodium 20 MG Tablet PO (08:10)
[2024-04-08] MEDS: amLODIPine 10 MG Tablet PO (08:10)
[2024-04-08] MEDS: Senna/Docusate Sodium 1 Tablet 2 TABLET PO ×2 (08:11→21:13)
[2024-04-08] MEDS: Cyanocobalamin 500 MCG Tablet 1000 MCG PO (08:11)
[2024-04-08] MEDS: Fenofibrate 48 MG Tablet PO (08:11)
[2024-04-08] MEDS: Cholecalciferol (VIT D3) 25 MCG TABLET (1,000 UNITS) 50 MCG PO (08:12)
[2024-04-08] MEDS: BRIMONIDINE 0.2% 5ML BOTTLE 1 DRP EACH EYE ×2 (08:13→21:05)
[2024-04-08] MEDS: Carbamide Peroxide 15 ML Bottle OTIC (08:16)
[2024-04-08 09:58] VITALS: BP 162/65; PULSE 77; RESP 16; TEMP 36.5; O2SAT 97
[2024-04-08] MEDS: oxyCODONE 5 MG Tablet PO ×2 (13:49→21:14)
--- NOTE | 2024-04-08 18:27 | NURSING ---
Flushed patient's left ear, small amount of wax removed from ear.
[2024-04-08] MEDS: Atorvastatin Calcium 80 MG Tablet PO (21:13)
[2024-04-08] MEDS: Latanoprost 0.005% 1 Bottle 1 DRP EACH EYE (21:14)
[2024-04-09] MEDS: Acetaminophen 500 MG Tablet 1000 MG PO (06:37)
[2024-04-09] MEDS: Enoxaparin 30 MG/0.3 ML Syringe SC (06:38)
[2024-04-09] MEDS: BRIMONIDINE 0.2% 5ML BOTTLE 1 DRP EACH EYE (06:38)
[2024-04-09] MEDS: Carbamide Peroxide 15 ML Bottle OTIC (06:39)
[2024-04-09 09:24] VITALS: BP 124/57; PULSE 74; RESP 17; TEMP 36.8; O2SAT 98
[2024-04-09] MEDS: Carvedilol 25 MG Tablet PO (09:26)
[2024-04-09] MEDS: Aspirin 81 MG TAB.CHEW PO (09:26)
[2024-04-09] MEDS: Menthol/Lanolin/Calamine/Znox 113 GM Tube 1 APPLIC TOPICAL (09:27)
[2024-04-09] MEDS: Losartan Potassium 100 MG Tablet PO (09:27)
[2024-04-09] MEDS: Pantoprazole Sodium 20 MG Tablet PO (09:28)
[2024-04-09] MEDS: Tamsulosin HCl 0.4 MG Capsule PO (09:28)
[2024-04-09] MEDS: Fenofibrate 48 MG Tablet PO (09:28)
[2024-04-09] MEDS: Senna/Docusate Sodium 1 Tablet 2 TABLET PO (09:28)
[2024-04-09] MEDS: amLODIPine 10 MG Tablet PO (09:28)
[2024-04-09] MEDS: Furosemide 40 MG Tablet PO (09:28)
[2024-04-09] MEDS: Cholecalciferol (VIT D3) 25 MCG TABLET (1,000 UNITS) 50 MCG PO (09:29)
[2024-04-09] MEDS: Cyanocobalamin 500 MCG Tablet 1000 MCG PO (09:29)
--- NOTE | 2024-04-09 09:50 | NURSING ---
pts x3 bottles of home eye gtts given back to pt
[2024-04-09] MEDS: oxyCODONE 5 MG Tablet PO (10:41)
== END 2024-04-09 11:40 | disposition home or self-care (01) | DRG 559 ==
PROVIDERS: Admitting Provider Family Medicine Geriatric Medicine; PCP Family Medicine; Visit Provider Family Medicine Geriatric Medicine
DX: Z47.89 Encounter for other orthopedic aftercare (principal); U07.1 COVID-19; I13.0 Hypertensive heart and chronic kidney disease with heart failure and stage 1 through stage 4 chronic kidney disease, or unspecified chronic kidney disease; I50.32 Chronic diastolic (congestive) heart failure; M48.04 Spinal stenosis, thoracic region; E11.22 Type 2 diabetes mellitus with diabetic chronic kidney disease; D50.9 Iron deficiency anemia, unspecified; E11.39 Type 2 diabetes mellitus with other diabetic ophthalmic complication; E53.8 Deficiency of other specified B group vitamins; N18.31 Chronic kidney disease, stage 3a; J84.10 Pulmonary fibrosis, unspecified; E55.9 Vitamin D deficiency, unspecified; K21.9 Gastro-esophageal reflux disease without esophagitis; E78.5 Hyperlipidemia, unspecified; I25.10 Atherosclerotic heart disease of native coronary artery without angina pectoris; N40.1 Benign prostatic hyperplasia with lower urinary tract symptoms; R33.8 Other retention of urine; Z87.891 Personal history of nicotine dependence; H40.9 Unspecified glaucoma; Z98.1 Arthrodesis status; Z79.899 Other long term (current) drug therapy
CPT/HCPCS: 36415; 73562; 80048; 82962; 85014; 85018; 85025; 92523; 97110; 97112; 97116; 97129; 97130; 97162; 97166; 97530; 97535; 97802